=== PATIENT | female | born 1990 | race Caucasian/White ===

== ENCOUNTER 2016-07-01 17:02 | Emergency (ER) | payer OTHER, MEDICAID ==
[2016-07-01] MEDS ORDERED: HYDROcod/ACET 5/325 Prepack 6 PO STA (17:33)
[2016-07-01] MEDS ORDERED: ONDANSETRON ODT 4 MG TABLET TL STA (17:33)
[2016-07-01] MEDS ORDERED: ONDANSETRON ODT 4 MG TABLET ONE (17:43)
[2016-07-01] MEDS ORDERED: oxyCODONE/ACET 5/325 Prepack 4 PO ONE (17:43)
[2016-07-01] MEDS ORDERED: HYDROcod/ACETAM 5/325 MG TABLET PO STA (17:46)
[2016-07-01] MEDS ORDERED: HYDROcod/ACETAM 5/325 MG TABLET ONE (17:47)
[2016-07-01] MEDS ORDERED: metroNIDAZOLE 250 MG TABLET PO STA (19:45)
[2016-07-01] MEDS ORDERED: CIPROFLOXACIN 250 MG TABLET PO STA (19:45)
[2016-07-01] MEDS ORDERED: CIPROFLOXACIN 250 MG TABLET PO ONE (19:48)
[2016-07-01] MEDS ORDERED: metroNIDAZOLE 250 MG TABLET PO ONE (19:48)
== END 2016-07-01 20:02 | disposition home or self-care (01) ==
DX: N12 Tubulo-interstitial nephritis, not specified as acute or chronic (principal); N76.0 Acute vaginitis; B96.89 Other specified bacterial agents as the cause of diseases classified elsewhere
CPT/HCPCS: 36415; 80053; 81001; 81025; 83690; 85025; 87077; 87086; 87181; 87210; 87220; 87491; 87591; 99283; A9270; Q0162

== ENCOUNTER 2016-08-06 11:15 | Outpatient (CLI) | payer OTHER, MEDICAID | END 2016-08-06 11:16 | disposition home or self-care (01) | DX: E28.2 Polycystic ovarian syndrome (principal) ==

== ENCOUNTER 2016-09-09 13:44 | Emergency (ER) | payer OTHER, MEDICAID ==
[2016-09-09] MEDS ORDERED: LIDOCAINE 1% 2 ML VIAL ONE (14:07)
[2016-09-09] MEDS ORDERED: TETANUS/DIPHTHERIA/PERTUSSIS 0.5 ML SYRINGE IM ONE ×2 (14:11→14:16)
== END 2016-09-09 14:50 | disposition home or self-care (01) ==
DX: S61.212A Laceration without foreign body of right middle finger without damage to nail, initial encounter (principal); W45.8XXA Other foreign body or object entering through skin, initial encounter; Y92.019 Unspecified place in single-family (private) house as the place of occurrence of the external cause; Z23 Encounter for immunization

== ENCOUNTER 2017-02-01 17:57 | Emergency (ER) | payer MEDICAID, OTHER ==
[2017-02-01 18:10] VITALS: BP 126/92
--- NOTE | 2017-02-01 18:46 | ED Physician Documentation ---
PD HPI LOWER EXT INJURY - Stated complaint Stated Complaint: R FOOT PX - Chief complaint Chief Complaint: Ext Problem - History obtained from History obtained from: Patient - History of Present Illness PD HPI LOW EXT INJURY LOCATION: Right, Foot Type of injury: Other (accidentally kicked a grill last night, increased bruising and swelling today.) Timing - onset: Last night Timing - duration: Days (1) Timing - details: Abrupt onset Pain level max: 8 Pain level now: 5 Improved by: Rest, Ice, Immobilization Worsened by: Moving, Palpating Associated symptoms: Swelling. 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 Psych: Depression - Past Surgical History Past Surgical History: No - Present Medications Home Medications: Ambulatory Orders Medication Instructions Recorded Confirmed Escitalopram [Lexapro] 20 mg PO DAILY 05/27/15 02/01/17 Ibuprofen [Motrin] 800 mg PO Q8H PRN #30 tablet 02/01/17 - Allergies Allergies/Adverse Reactions: Allergies Allergy/AdvReac Type Severity Reaction Status Date / Time No Known Drug Allergies Allergy Verified 02/01/17 18:18 - Social History Does the pt smoke?: No Smoking Status: Never smoker Does the pt drink ETOH?: Yes Does the pt have substance abuse?: No - Immunizations Immunizations are current?: Yes Immunizations: TDAP >10years/unknown - POLST Patient has POLST: No PD ED PE NORMAL - Vitals Vital signs reviewed: Yes - General General: 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, No acute distress - Derm Derm: Warm and dry - Extremities Extremities: Other (R foot - swelling, ecchymosis and tenderness over the prox phalanx of the great toe. o/w normal exam. NVI) - Neuro Neuro: 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 Results - Vitals Vitals: Vital Signs - 24 hr 02/01/17 18:08 Temperature 36.3 C L Heart Rate 51 L Respiratory 16 Rate Blood Pressure 126/92 H O2 Saturation 100 Oxygen O2 Source Room air - Rads (name of study) R foot xray Radiology: Prelim report reviewed, EMP read contemporaneously, See rad report ( Minimally displaced oblique fracture proximal phalanx great toe. ) PD MEDICAL DECISION MAKING - ED course Complexity details: reviewed results, re-evaluated patient, considered differential, d/w patient ED course: Patient is a 26-year-old female who presents to the emergency department with a minimally displaced oblique fracture of the proximal phalanx of the great toe on the right foot. Placed in a postoperative shoe. Neurovascularly intact. She is well-appearing, nontoxic. Patient counseled regarding signs and symptoms for which I believe and urgent re-evaluation would be necessary. Patient with good understanding of and agreement to plan and is comfortable going home at this time This document was made in part using voice recognition software. While efforts are made to proofread this document, sound alike and grammatical errors may occur. Departure - Departure Disposition: 01 Home, Self Care Clinical Impression: Toe fracture, right Qualifiers: Encounter type: initial encounter Toe: great toe Fracture type: closed Phalanx : proximal Fracture alignment: nondisplaced Qualified Code(s): S92.414A - Nondisplaced fracture of proximal phalanx of right great toe, initial encounter for closed fracture Condition: Good Instructions: ED Fx Foot Follow-Up: [facility] [Provider Group] - Within 1 week Prescriptions: Ibuprofen [Motrin] 800 mg PO Q8H PRN #30 tablet PRN Reason: PAIN &/OR FEVER Comments: Wear the postoperative shoe until released by your doctor and/or orthopedics. Discharge Date/Time: 02/01/17 19:52
--- NOTE | 2017-02-01 19:32 | XRAY Preliminary Report ---
Exam: XR Foot 3 View RT IMPRESSION: Minimally displaced oblique fracture proximal phalanx great toe. [facility] SITE ID: [id number]
--- NOTE | 2017-02-01 19:35 | XRAY Report ---
EXAM: RIGHT FOOT RADIOGRAPHY EXAM DATE: 02/01/2017 06:57 PM. CLINICAL HISTORY: Right foot pain COMPARISON: None. TECHNIQUE: 3 views. FINDINGS: Bones: There is an oblique fracture of the proximal phalanx great toe with 2 mm dorsal displacement o f the distal fracture fragment. Joints: Normal. No subluxations. Soft Tissues: Minimal soft tissue swelling. IMPRESSION: Minimally displaced oblique fracture proximal phalanx great toe. [facility] Referring Provider Line: [phone] SITE ID: [id number]
== END 2017-02-01 19:52 | disposition home or self-care (01) ==
LOC: ED 17:57
DX: S92.414A Nondisplaced fracture of proximal phalanx of right great toe, initial encounter for closed fracture (principal); W22.09XA Striking against other stationary object, initial encounter
CPT/HCPCS: 99283

== ENCOUNTER 2017-05-23 14:11 | Emergency (ER) | payer MEDICAID ==
[2017-05-23 14:20] VITALS: BP 134/82
--- NOTE | 2017-05-23 15:47 | ED Physician Documentation ---
PD HPI HEADACHE - Stated complaint Stated Complaint: HEADACHE - Chief complaint Chief Complaint: Neuro - History obtained from History obtained from: Patient - History of Present Illness Timing - onset: How many days ago (8) Timing - onset during: Light activity Timing - duration: Days (8) Timing - details: Gradual onset, Still present Worst headache ever?: No: Worst headache ever? (feels similar to prior migraines though not typically of this duration.) Location: Front, Right Quality: Throbbing, Aching Associated symptoms: Nausea, Eye pain. No: Fever, Stiff neck, Weakness, Numbness, Syncope, Vision changes Improved by: Dark room. No: Meds (OTC meds) Worsened by: Light, Noise Contributing factors: No: Possible carbon monoxide, Recent illness, Trauma Similar symptoms before: Diagnosis (migraines with rarely of this duration) Recently seen: Not recently seen Review of Systems Constitutional: denies: Fever, Chills Eyes: reports: Photophobia. denies: Loss of vision, Decreased vision, Discharge , Irritation Ears: denies: Loss of hearing, Ear pain Nose: denies: Rhinorrhea / runny nose, Congestion Throat: denies: Sore throat Respiratory: denies: Cough GI: reports: Nausea, Vomiting (today). 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 Psych: Depression - Past Surgical History Past Surgical History: No - Present Medications Home Medications: Ambulatory Orders Medication Instructions Recorded Confirmed Escitalopram [Lexapro] 20 mg PO DAILY 05/27/15 02/01/17 Ibuprofen [Motrin] 800 mg PO Q8H PRN #30 tablet 02/01/17 Cetirizine [ZyrTEC] 10 mg PO DAILY #15 tablet 05/23/17 Dexamethasone [Decadron] 4 mg PO DAILY #5 tablet 05/23/17 HYDROcod/ACETAM 5/325 [[place] 5/325] 1 tab PO Q6H PRN #15 tablet 05/23/17 - Allergies Allergies/Adverse Reactions: Allergies Allergy/AdvReac Type Severity Reaction Status Date / Time No Known Drug Allergies Allergy Verified 05/23/17 14:20 - Social History Does the pt smoke?: No Smoking Status: Never smoker Does the pt drink ETOH?: Yes ETOH Use: Wine, Beer, Liquor Does the pt have substance abuse?: No - Immunizations Immunizations are current?: Yes Immunizations: TDAP >10years/unknown - POLST Patient has POLST: No PD ED PE NORMAL - Vitals Vital signs reviewed: Yes - General General: 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, No acute distress, Well developed/nourished - HEENT HEENT: PERRL (light sensitive), EOMI - Neck Neck: Supple, no meningeal sign, No adenopathy - Cardiac Cardiac: RRR, No murmur - Respiratory Respiratory: Clear bilaterally - Abdomen Abdomen: Soft, Non tender - Back Back: No CVA TTP - Derm Derm: Normal color, Warm and dry, No rash - Extremities Extremities: No deformity, No tenderness to palpate - Neuro Neuro: 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, cart pusher 2-12 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 Improved with meds in ED. ), d/w patient Departure - Departure Disposition: 01 Home, Self Care Clinical Impression: Headache Qualifiers: Headache type: unspecified Headache chronicity pattern: acute headache Intractability: intractable Qualified Code(s): R51 - Headache Condition: Stable Record reviewed to determine appropriate education?: Yes Instructions: ED Cephalgia Unspecified, ED Headache Migraine Follow-Up: Kari Conti ARNP [Primary Care Provider] - Prescriptions: Cetirizine [ZyrTEC] 10 mg PO DAILY #15 tablet Dexamethasone [Decadron] 4 mg PO DAILY #5 tablet HYDROcod/ACETAM 5/325 [[place] 5/325] 1 tab PO Q6H PRN #15 tablet PRN Reason: Pain Comments: Decadron daily for several days until headache all gone. Tylenol or Ibuprofen for pains; add hydrocodone as needed. Drink lots of fluids. Can also take daily antihistamine such as cetirizine. Recheck if headache not fully improved over the next few days. Return if worsening or other symptoms with it. Discharge Date/Time: 05/23/17 16:51
[2017-05-23] MEDS ORDERED: CETIRIZINE 10 MG TABLET PO STA (16:29)
[2017-05-23] MEDS ORDERED: DEXAMETHASONE 10 MG/ML VIAL PO STA (16:29)
== END 2017-05-23 16:51 | disposition home or self-care (01) ==
LOC: ED 14:11
DX: R51 Headache (principal)
CPT/HCPCS: 99283; 99284; A9270; 81025

== ENCOUNTER 2017-05-29 14:05 | Emergency (ER) | payer MEDICAID ==
--- NOTE | 2017-05-29 16:30 | ED Physician Documentation ---
PD HPI HEADACHE - Stated complaint Stated Complaint: HEADACHE/BLURRED VISION - Chief complaint Chief Complaint: General - History obtained from History obtained from: Patient - History of Present Illness Timing - onset: How many weeks ago (2-3) Timing - onset during: Rest Timing - duration: Weeks (2-3) Timing - details: Gradual onset, Still present, Constant Worst headache ever?: No: Worst headache ever? Location: Front, Right Quality: Throbbing, Aching Associated symptoms: Nausea, Vision changes (blurring right side. No loss of vision. No diplopia.). No: Fever, Stiff neck, Vomiting Improved by: No: Rest, Dark room, Meds Worsened by: No: Light, Noise Contributing factors: No: Hypertension, Recent illness, Trauma Similar symptoms before: Diagnosis (similar to migraines in the past, but this is persistent and steady for 2-3 weeks now.) Recently seen: Emergency Dept (seen in ED 5-6 days ago and treated as possible migraine/tension with right occipital nerve injection marcaine, steroids, pains meds. She says it lessened some for 1-2 days but did not go away and is worse again. No new neuro symptoms.) Review of Systems Constitutional: denies: Fever, Chills Eyes: reports: Decreased vision. denies: Loss of vision, Photophobia, Irritation Nose: denies: Rhinorrhea / runny nose, Congestion Throat: denies: Sore throat Respiratory: denies: Cough GI: reports: Nausea. 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 Psych: Depression - Past Surgical History Past Surgical History: No - Present Medications Home Medications: Ambulatory Orders Medication Instructions Recorded Confirmed Escitalopram [Lexapro] 20 mg PO DAILY 05/27/15 05/29/17 Ibuprofen [Motrin] 800 mg PO Q8H PRN #30 tablet 02/01/17 05/29/17 Cetirizine [ZyrTEC] 10 mg PO DAILY #15 tablet 05/23/17 05/29/17 Dexamethasone [Decadron] 4 mg PO DAILY #5 tablet 05/23/17 05/29/17 HYDROcod/ACETAM 5/325 [[place] 5/325] 1 tab PO Q6H PRN #15 tablet 05/23/17 HYDROcod/ACETAM 5/325 [[place] 5/325] 1 tab PO Q6H PRN #20 tablet 05/29/17 - Allergies Allergies/Adverse Reactions: Allergies Allergy/AdvReac Type Severity Reaction Status Date / Time No Known Drug Allergies Allergy Verified 05/29/17 14:17 - Social History Does the pt smoke?: No Smoking Status: Never smoker Does the pt drink ETOH?: Yes Does the pt have substance abuse?: No - Immunizations Immunizations are current?: Yes Immunizations: TDAP >10years/unknown - POLST Patient has POLST: No PD ED PE NORMAL - Vitals Vital signs reviewed: Yes - General General: 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, No acute distress, Well developed/nourished - HEENT HEENT: PERRL, EOMI, Other (fundi appear normal) - Neck Neck: Supple, no meningeal sign, No adenopathy - Cardiac Cardiac: RRR, No murmur - Respiratory Respiratory: Clear bilaterally - Derm Derm: Normal color, Warm and dry, No rash - Neuro Neuro: 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, key 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 operator 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, No motor deficit, No sensory deficit, Normal speech, Other Eye Opening: Spontaneous Motor: Obeys Commands Verbal: Oriented GCS Score: 15 - Psych Psych: Normal mood Results - Vitals Vitals: Vital Signs - 24 hr 05/29/17 05/29/17 14:14 18:54 Temperature 36.1 C L 36.4 C L Heart Rate 89 65 Respiratory 14 18 Rate Blood Pressure 142/92 H 131/89 H O2 Saturation 100 99 Oxygen O2 Source Room air - Labs Labs: Laboratory Tests 05/29/17 15:14 Urine Color YELLOW Urine Clarity HAZY Urine pH 6.0 Ur Specific Matthews <=1.005 Urine Protein NEGATIVE Urine Glucose (UA) NEGATIVE Urine Ketones NEGATIVE Urine Occult Blood SMALL H Urine Nitrite NEGATIVE Urine Bilirubin NEGATIVE Urine Urobilinogen 0.2 (NORMAL) Ur Leukocyte Esterase NEGATIVE Urine RBC 0-5 Urine WBC 0-3 Ur Squamous Epith Cells FEW Squamous Urine Bacteria None Seen Ur Microscopic Review INDICATED Urine Culture Comments NOT INDICATED Urine HCG, Qual NEGATIVE - Rads (name of study) brain MRI Radiology: Prelim report reviewed (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 No bleeding. No other findings. ) PD MEDICAL DECISION MAKING - ED course Complexity details: reviewed results (Suprasellar cyst 1 cm with impingement on chiasm to the right, which could account for right blurred vision and headache ( acting migraine equivalent). ), considered differential (given persistence of headache and some blurred vision, despite sounding migrainous but is persistent and not improved with steroids/occipital nerve injection and pain meds, so discussed with pateint and will obtain imaging to look for structural rather than functional causes. ), d/w patient, d/w instructional consultant (Dr. Barney, Neurosurgery at [facility] - says her findings could account for symptoms and might be triggering migraine too. Suggests Tylenol for pain. Steroids would not be helpful. [facility] office will call her Thursday to set appt for next week. ) Departure - Departure Disposition: Home, Self Care Clinical Impression: Right-sided headache, Suprasellar cyst Condition: Stable Record reviewed to determine appropriate education?: Yes Instructions: ED Cephalgia Unspecified Follow-Up: GLENDA BARNEY MD [Physician No Access] - Prescriptions: HYDROcod/ACETAM 5/325 [[place] 5/325] 1 tab PO Q6H PRN #20 tablet PRN Reason: Pain Comments: I talked with neurosurgery at [facility] and they want to see you next week in follow-up regarding potential treatment options for this. The neurosurgeon does think this can be given you the blurred vision and headache or likely triggering a migraine to some degree. Dr. Barney's office will give you a call on Thursday to set up an appointment. If you have not heard from them by Thursday then you can call their office to follow-up in the number is [phone]. He suggests that steroids or anti-inflammatories will really impacted since its structural and not inflammatory. Continue Tylenol or hydrocodone if needed for pain. Bring the disc of the MRI with you on your follow-up appointment. Discharge Date/Time: 05/29/17 19:39
--- NOTE | 2017-05-29 17:55 | MRI Report ---
EXAM: MRI BRAIN WITHOUT CONTRAST EXAM DATE: 05/29/2017 05:40 PM. CLINICAL HISTORY: 26-year-old with two-week history of right-sided headache and right blurred vision COMPARISON: None. TECHNIQUE: Multiplanar, multisequence T1-weighted and fluid-sensitive MR sequences of the brain were performed. Sequences optimized for routine evaluation. Other: None. IV Contrast: None. FINDINGS: Brain Volume: Normal for age. Parenchyma/Dura: No acute parenchymal hemorrhage, mass, or midline shift. No white matter lesions esdras ntified. No areas restricted diffusion seen to suggest acute infarct. No areas of old hemorrhagic blo od products seen. Ventricles/Cisterns: No hydrocephalus. No abnormal extra-axial fluid collection or hemorrhage. Orbits: Symmetric and unremarkable. Sella Turcica: There is a T1/T2 hyperintense mass lesion seen within the sella with suprasellar exten eron measuring 10 x 10 x 10 mm (CC by TR by AP). There appears to be mass effect on the prechiasmatic optic nerves, greater on the right. Inferior to the lesion there appears to be normal pituitary tiss ues. The pituitary infundibulum is not definitively seen. The cavernous sinuses appear normal. Cavern ous ICA flow voids appear normal. IAC: Symmetric and unremarkable. Vasculature: Normal signal flow void is seen in the major arterial structures at the skull base. Sinuses: Small bilateral maxillary mucosal retention cysts versus polyps. Mastoid air cells and middl e ear cavities are clear. Bones: No focal pathologic appearing marrow signal changes. Other: None. IMPRESSION: 1. There is a T1/T2 hyperintense mass lesion seen within the sella with suprasellar extension measuri ng 10 x 10 x 10 mm (CC by TR by AP). There appears to be mass effect on the prechiasmatic optic nerve s, greater on the right. 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 The possibility of a cystic pituitary adenoma is less likely but not entirely excluded . Consider dedicated pituitary imaging for further evaluation. 2. No acute infarct, intracranial hemorrhage, additional mass, hydrocephalus, or midline shift. [facility] Referring Provider Line: [phone] SITE ID: [id number]
[2017-05-29 18:54] VITALS: BP 131/89
[2017-05-29 19:48] LABS: BILIRUBIN,URINE NEGATIVE (NEGATIVE); GLUCOSE, URINE (UA) NEGATIVE (NEGATIVE); KETONES,URINE (UA) NEGATIVE (NEGATIVE); LEUKOCYTE ESTERASE, URINE NEGATIVE (NEGATIVE); NITRITE,URINE NEGATIVE (NEGATIVE); OCCULT BLOOD,URINE SMALL (NEGATIVE); PROTEIN,URINE NEGATIVE (NEGATIVE); UROBILINOGEN,URINE 0.2 (NORMAL) E.U./dL (NORMAL)
[2017-05-29 20:02] LABS: CLARITY,URINE HAZY (CLEAR); HCG UR QUAL NEGATIVE
[2017-05-29 20:14] LABS: BACTERIA,URINE None Seen /HPF (None Seen); RBC,URINE 0-5 /HPF (0-5); SQUAMOUS EPITHELIAL CELL,UR FEW Squamous (<= Few)
== END 2017-05-29 19:39 | disposition home or self-care (01) ==
LOC: ED 14:05
DX: R51 Headache (principal); G93.0 Cerebral cysts
CPT/HCPCS: 70551; 81001; 81003; 81025; 87086; 99283; 99284

== ENCOUNTER 2017-06-04 10:41 | Outpatient (CLI) | payer MEDICAID ==
[2017-06-04 11:35] LABS: CALCIUM 9.2 mg/dL (8.5-10.3); CREATININE 0.9 mg/dL (0.4-1.0)
[2017-06-04 12:18] LABS: THYROID STIMULATING HORMONE 0.9 uIU/mL (0.34-5.60)
[2017-06-04 12:23] LABS: FREE T4 (FREE THYROXINE) 0.89 ng/dL (0.58-1.64)
[2017-06-04 12:24] LABS: PROLACTIN 12.06 ng/mL
[2017-06-04 12:46] LABS: FOLLICLE STIMULATING HORMONE 8.43 mIU/mL
[2017-06-04 12:47] LABS: LUTEINIZING HORMONE 9.16 mIU/mL
== END 2017-06-04 10:42 | disposition home or self-care (01) ==
LOC: LAB 10:41
PROVIDERS: ATTEND Neurological Surgery
DX: D49.7 Neoplasm of unspecified behavior of endocrine glands and other parts of nervous system (principal)
CPT/HCPCS: 36415; 80048; 81599; 83001; 83002; 84146; 84439; 84443

== ENCOUNTER 2017-07-28 14:39 | Outpatient (CLI) | payer MEDICAID ==
[2017-07-28 15:08] LABS: BASOPHILS % (AUTO) 0.5 %; EOSINOPHILS % (AUTO) 0.8 %; HGB - HEMOGLOBIN 12.9 g/dL (12.0-16.0); LYMPHOCYTES # (AUTO) 2.1 10^3/uL (1.5-3.5); LYMPHOCYTES % (AUTO) 39.7 %; MEAN CORPUSCULAR HEMOGLOBIN 29.3 pg (27.0-31.0); MEAN CORPUSCULAR HGB CONC 33.2 g/dL (32.0-36.0); MEAN CORPUSCULAR VOLUME 88.2 fL (81.0-99.0); MEAN PLATELET VOLUME 8.1 fL (7.9-10.8); MONOCYTES # (AUTO) 0.4 10^3/uL (0.0-1.0); MONOCYTES % (AUTO) 6.7 %; NEUTROPHILS # (AUTO) 2.8 10^3/uL (1.5-6.6); NEUTROPHILS % (AUTO) 52.3 %; PLT - PLATELET COUNT 269 10^3/uL (130-450); RED BLOOD COUNT 4.41 10^6/uL (4.20-5.40); RED CELL DISTRIBUTION WIDTH 13.4 % (12.0-15.0); WHITE BLOOD COUNT 5.3 x10^3/uL (4.8-10.8)
[2017-07-28 15:19] LABS: CREATININE 0.9 mg/dL (0.4-1.0)
[2017-07-28 15:31] LABS: INR 1.1 (0.8-1.2); PT - PROTHROMBIN TIME 12.2 secs (9.9-12.6)
[2017-07-28 15:47] LABS: GLUCOSE, URINE (UA) NEGATIVE (NEGATIVE); KETONES,URINE (UA) 15 mg/dL (NEGATIVE); LEUKOCYTE ESTERASE, URINE NEGATIVE (NEGATIVE); NITRITE,URINE NEGATIVE (NEGATIVE); OCCULT BLOOD,URINE MODERATE (NEGATIVE); PH,URINE 6.5 PH (5.0-7.5); PROTEIN,URINE NEGATIVE (NEGATIVE); UROBILINOGEN,URINE 0.2 (NORMAL) E.U./dL (NORMAL)
[2017-07-28 15:50] LABS: BILIRUBIN,URINE NEGATIVE (NEGATIVE); CLARITY,URINE CLEAR (CLEAR); ICTOTEST,URINE NEGATIVE
[2017-07-28 16:21] LABS: RBC,URINE 0-5 /HPF (0-5)
[2017-07-28 16:22] LABS: BACTERIA,URINE Few /HPF (None Seen); MUCUS,URINE Marked Strands; SQUAMOUS EPITHELIAL CELL,UR MOD Squamous (<= Few)
== END 2017-07-28 14:40 | disposition home or self-care (01) ==
LOC: LAB 14:39
PROVIDERS: ATTEND Neurological Surgery
DX: E23.6 Other disorders of pituitary gland (principal)
CPT/HCPCS: 36415; 80048; 81001; 81003; 85025; 85610; 87086

== ENCOUNTER 2017-08-03 12:32 | Outpatient (CLI) | payer MEDICAID ==
[2017-08-03 13:29] LABS: CALCIUM 8.7 mg/dL (8.5-10.3); CREATININE 0.7 mg/dL (0.4-1.0)
== END 2017-08-03 12:33 | disposition home or self-care (01) ==
LOC: LAB 12:32
PROVIDERS: ATTEND Neurological Surgery
DX: E23.6 Other disorders of pituitary gland (principal)
CPT/HCPCS: 36415; 80048

== ENCOUNTER 2017-08-10 12:43 | Outpatient (CLI) | payer MEDICAID ==
[2017-08-10 13:18] LABS: CREATININE 0.7 mg/dL (0.4-1.0)
== END 2017-08-10 12:44 | disposition home or self-care (01) ==
LOC: LAB 12:43
PROVIDERS: ATTEND Neurological Surgery
DX: E23.6 Other disorders of pituitary gland (principal)
CPT/HCPCS: 36415; 80048

== ENCOUNTER 2017-08-27 10:36 | Outpatient (CLI) | payer MEDICAID ==
[2017-08-27 11:14] LABS: BUN - BLOOD UREA NITROGEN 11 mg/dL (6-20); CARBON DIOXIDE - CO2 25 mmol/L (21-32); CHLORIDE 104 mmol/L (101-111); CREATININE 0.7 mg/dL (0.4-1.0); GFR - MDRD 102 (>89); GLUCOSE 98 mg/dL (70-100); SODIUM 136 mmol/L (135-145)
[2017-08-27 11:17] LABS: CRP - C-REACTIVE PROTEIN < 1.0 mg/dL (0-1.0)
[2017-08-27 12:37] LABS: RHEUMATOID FACTOR NEGATIVE (Negative)
== END 2017-08-27 10:37 | disposition home or self-care (01) ==
LOC: LAB 10:36
PROVIDERS: ATTEND Nurse Practitioner Family
DX: D49.7 Neoplasm of unspecified behavior of endocrine glands and other parts of nervous system (principal); R53.81 Other malaise
CPT/HCPCS: 36415; 80048; 85651; 86038; 86140; 86200; 86430

== ENCOUNTER 2017-10-21 12:44 | Outpatient (CLI) | payer MEDICAID ==
[~2017-10-21 12:44] MED LIST: GADOBUTROL 7.5 MMOL/7.5 ML SYRINGE ONE
[2017-10-21] MEDS ORDERED: GADOBUTROL 7.5 MMOL/7.5 ML SYRINGE IVP ONE (13:36)
--- NOTE | 2017-10-21 15:38 | MRI Report ---
EXAM: MRI BRAIN AND PITUITARY WITHOUT AND WITH CONTRAST EXAM DATE: 10/21/2017 01:51 PM. 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 Evaluate for i nterval change. COMPARISON: MR brain 05/29/2017. TECHNIQUE: Multiplanar, multisequence T1-weighted and fluid-sensitive MR sequences of the brain and p ituitary were performed. Sequences optimized for routine evaluation. Other: None. IV Contrast: 7.5ML GADAVIST. FINDINGS: Brain Volume: Normal for age. Parenchyma: No acute hemorrhage, mass, or infarct. No white matter lesions identified. No abnormal en hancement. Ventricles/Cisterns: No hydrocephalus. No abnormal extra-axial fluid collection or hemorrhage. Cister ns are patent. No abnormal postcontrast enhancement. Orbits: Symmetric and unremarkable. Sella Turcica: Again demonstrated is an intrinsically T1 hyperintense lesion seen along the superior aspect of the pituitary measuring 4 x 4 by 4 mm it is decreased in size since 05/29/2017 at which wing e it measured 9 x 8 x 8 mm (cc by TRV by AP). On dynamic and postcontrast sequences there is question able area of hypoenhancement within the left aspect of the pituitary seen measuring 3 x 3 x 2 mm (cc by TRV by AP; series 1101, image 28). The normal pituitary T1 bright spot appears that an ectopic loc ation along the posterior right aspect of the sella. Infundibulum appears slightly deviated to the ri ght. No suprasellar mass or mass effect on the overlying optic structures. Cavernous sinuses appear n ormal. Cavernous ICA flow voids appear maintained. IAC: Symmetric and unremarkable. Vasculature: Normal signal flow void is seen in the major arterial structures at the skull base. The dural sinuses are patent and enhance normally. Sinuses: No acute sinus disease. Bones: No focal pathologic appearing marrow signal changes. Other: None. IMPRESSION: 1. There continues to be a intrinsically T1 hyperintense lesion seen along the superior aspect of the pituitary is decreased in size since 05/29/2017 currently measuring 4 x 4 by 4 mm, previously measur ing 9 x 8 x 8 mm (cc by TRV AP). Findings suspicious for potential proteinaceous Rathke's cleft cyst or pituitary cyst. Focus of hemorrhage cannot be excluded. 2. On dynamic and postcontrast sequences there is questionable area of hypoenhancement within the lef t aspect of the pituitary seen measuring 3 x 3 x 2 mm (cc by TRV by AP). 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 Correlation with laboratory values is suggested. 3. No acute infarct, intracranial hemorrhage, additional mass, hydrocephalus, midline shift, or addit ional areas of abnormal postcontrast enhancement. [facility] Referring Provider Line: [phone] SITE ID: [id number]
== END 2017-10-21 12:45 | disposition home or self-care (01) ==
LOC: DI 12:44
PROVIDERS: ATTEND Neurological Surgery
DX: E23.6 Other disorders of pituitary gland (principal)
CPT/HCPCS: 70553; A9585

== ENCOUNTER 2017-12-29 10:33 | Emergency (ER) | payer MEDICAID ==
[2017-12-29 11:11] VITALS: BP 130/90
--- NOTE | 2017-12-29 12:49 | XRAY Report ---
Procedure Date: 12/29/2017 Accession Number: [id number] / [id number] Procedure: XR - Wrist 2 View LT CPT Code: FULL RESULT: EXAM: LEFT WRIST RADIOGRAPHY EXAM DATE: 12/29/2017 12:38 PM. CLINICAL HISTORY: Pain. Twisting injury. Left wrist pain. COMPARISON: None. TECHNIQUE: 2 views. FINDINGS: Bones: Normal. No fractures or bone lesions. Joints: Normal. No subluxations. Soft Tissues: Normal. No soft tissue swelling. IMPRESSION: Normal 2 view left wrist radiography. [facility]
--- NOTE | 2017-12-29 12:56 | ED Physician Documentation ---
PD HPI UPPER EXT INJURY - Stated complaint Stated Complaint: LT WRIST INJ - Chief complaint Chief Complaint: Ext Problem - History obtained from History obtained from: Patient - History of Present Illness Location: Left, Wrist Timing - details: Gradual onset, Intermittant Pain level max: 6 Pain level now: 5 Improved by: Rest Worsened by: Moving, Palpating - Additonal information Additional information: Patient is a 27-year-old female who presents to the emergency department with left wrist pain. She states this started after skipping gelato at work. States it is worse with movement and better with rest. Has carpal tunnel in the right wrist so has been using her left wrist. She is right-handed. 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 Psych: Depression - Past Surgical History Past Surgical History: No - Present Medications Home Medications: Ambulatory Orders Medication Instructions Recorded Confirmed Escitalopram [Lexapro] 20 mg PO DAILY 05/27/15 05/29/17 Ibuprofen [Motrin] 800 mg PO Q8H PRN #30 tablet 02/01/17 05/29/17 Cetirizine [ZyrTEC] 10 mg PO DAILY #15 tablet 05/23/17 05/29/17 Dexamethasone [Decadron] 4 mg PO DAILY #5 tablet 05/23/17 05/29/17 HYDROcod/ACETAM 5/325 [Lannon 5/325] 1 tab PO Q6H PRN #15 tablet 05/23/17 HYDROcod/ACETAM 5/325 [Lannon 5/325] 1 tab PO Q6H PRN #20 tablet 05/29/17 Meloxicam [Mobic] 15 mg PO DAILY PRN #20 tablet 12/29/17 - Allergies Allergies/Adverse Reactions: Allergies Allergy/AdvReac Type Severity Reaction Status Date / Time No Known Drug Allergies Allergy Verified 12/29/17 11:10 - Social History Does the pt smoke?: No Smoking Status: Never smoker Does the pt drink ETOH?: Yes ETOH Use: Other Does the pt have substance abuse?: No Substance Use and Type: Marijuana - Immunizations Immunizations are current?: Yes Immunizations: TDAP >10years/unknown - POLST Patient has POLST: No PD ED PE NORMAL - Vitals Vital signs reviewed: Yes - General General: 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, No acute distress - HEENT HEENT: Moist mucous membranes - Derm Derm: Warm and dry - Extremities Extremities: Other (L wrist - no bony tenderness with palpation. NVI. pain with ROM. ) - Neuro Neuro: 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 - Psych Psych: Normal mood, Normal affect Results - Vitals Vitals: Vital Signs - 24 hr 12/29/17 11:08 Temperature 36.5 C Heart Rate 82 Respiratory 16 Rate Blood Pressure 130/90 H O2 Saturation 100 Oxygen O2 Source Room air - Rads (name of study) L wrist xray Radiology: Prelim report reviewed, EMP read contemporaneously, See rad report ( no acute abnormality.) PD MEDICAL DECISION MAKING - ED course Complexity details: considered differential, d/w patient ED course: Patient is a 27-year-old female with what appears to be a left wrist strain versus sprain. Likely overuse injury. Placed in a velcro splint for comfort. Will have her follow-up with her doctor for further evaluation and care. Neurovascularly intact. No bony tenderness. Patient counseled regarding signs and symptoms for which I believe and urgent re-evaluation would be necessary. Patient with good understanding of and agreement to plan and is comfortable going home at this time This document was made in part using voice recognition software. While efforts are made to proofread this document, sound alike and grammatical errors may occur. - Sepsis Event Vital Signs: Vital Signs - 24 hr 12/29/17 11:08 Temperature 36.5 C Heart Rate 82 Respiratory 16 Rate Blood Pressure 130/90 H O2 Saturation 100 Oxygen O2 Source Room air Departure - Departure Disposition: 01 Home, Self Care Clinical Impression: Strain of wrist, left Qualifiers: Encounter type: initial encounter Qualified Code(s): S66.912A - Strain of unspecified muscle, fascia and tendon at wrist and hand level, left hand, initial encounter Condition: Good Instructions: ED Sprain Wrist Follow-Up: Kari Conti ARNP [Primary Care Provider] - Within 1 week Prescriptions: Meloxicam [Mobic] 15 mg PO DAILY PRN #20 tablet PRN Reason: pain Comments: Return if you worsen. Use the mobic as prescribed and use the splint to help your discomfort. Forms: Activity restrictions Discharge Date/Time: 12/29/17 13:14
== END 2017-12-29 13:14 | disposition home or self-care (01) ==
LOC: ED 10:33
DX: S66.912A Strain of unspecified muscle, fascia and tendon at wrist and hand level, left hand, initial encounter (principal); X50.3XXA Overexertion from repetitive movements, initial encounter
CPT/HCPCS: 99283

== ENCOUNTER 2018-01-27 10:54 | Emergency (ER) | payer MEDICAID ==
[2018-01-27] MEDS ORDERED: cephALEXin 250 MG CAPSULE PO STA (12:35)
[2018-01-27] MEDS ORDERED: CETIRIZINE 10 MG TABLET PO STA (12:35)
[2018-01-27] MEDS ORDERED: DEXAMETHASONE 10 MG/ML VIAL PO STA (12:35)
--- NOTE | 2018-01-27 12:36 | ED Physician Documentation ---
PD HPI HEENT - Stated complaint Stated Complaint: HEAD PX/SORE THROAT/VISION CHANGES - Chief complaint Chief Complaint: General - History obtained from History obtained from: Patient - History of Present Illness Timing - onset: How many weeks ago (1-2) Timing - duration: Weeks (1-2) Timing - details: Gradual onset, Still present Location: Sinuses (feeling of frontal sinus pressure and right maxillary. Had had cyst drained in Jul via transsphenoidal approach and was doing okay. Has had some nasal drainage and pressure recently. Has had sore throat in mornings the past week or so. Intermittent blurred vision the past week or so.) Worsens: Position Associated symptoms: Congestion, Headache (frontal pressure). No: Fever, Swollen nodes, Facial swelling, Cough Recently seen: Not recently seen (appt with PCP upcoming.) Review of Systems Constitutional: denies: Fever, Chills Eyes: reports: Decreased vision (intermittently). 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 ) - Present Medications Home Medications: Ambulatory Orders Medication Instructions Recorded Confirmed Escitalopram [Lexapro] 20 mg PO DAILY 05/27/15 05/29/17 Ibuprofen [Motrin] 800 mg PO Q8H PRN #30 tablet 02/01/17 05/29/17 Cetirizine [ZyrTEC] 10 mg PO DAILY #15 tablet 05/23/17 05/29/17 Cephalexin [Keflex] 500 mg PO QID #21 capsule 01/27/18 Cetirizine [ZyrTEC] 10 mg PO DAILY #20 tablet 01/27/18 Dexamethasone [Decadron] 4 mg PO DAILY #7 tablet 01/27/18 Nortriptyline HCl 25 mg pe 01/27/18 Tramadol HCl 50 mg PO Q6H PRN #20 tablet 01/27/18 - Allergies Allergies/Adverse Reactions: Allergies Allergy/AdvReac Type Severity Reaction Status Date / Time No Known Drug Allergies Allergy Verified 01/27/18 11:02 - Social History Does the pt smoke?: No Smoking Status: Never smoker Does the pt drink ETOH?: Yes Does the pt have substance abuse?: No - Immunizations Immunizations are current?: Yes Immunizations: TDAP >10years/unknown - POLST Patient has POLST: No PD ED PE NORMAL - Vitals Vital signs reviewed: Yes - General General: 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, No acute distress, Well developed/nourished - HEENT HEENT: PERRL, EOMI, Moist mucous membranes, Pharynx benign, Other (sinus tender to percussion frontal) - Neck Neck: Supple, no meningeal sign, No adenopathy - Derm Derm: Normal color, Warm and dry - Neuro Neuro: 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, 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 Had been bigger, but I am not sure if this would be residual post procedure or recurrent. A repeat MRI would be good to see if re-expanding, but would not think it emergent per se. ), considered differential (sounds largely like sinus inflammation/infection. Some symptoms could be recurring cyst at pituitary with pressure (like the vision blurry at times). Would not see reason for emergent MRI, so defer to PCP/Neurosurgeon to get repeat one outpt. ), d/w patient - Sepsis Event Vital Signs: Vital Signs - 24 hr 01/27/18 01/27/18 11:00 12:49 Temperature 36.4 C L 36.4 C L Heart Rate 97 80 Respiratory 20 16 Rate Blood Pressure 141/98 H 130/91 H O2 Saturation 100 96 Oxygen O2 Source Room air Departure - Departure Disposition: 01 Home, Self Care Clinical Impression: Frontal headache Sinusitis, acute Qualifiers: Sinusitis location: frontal Recurrence: non-recurrent Qualified Code(s): J01.10 - Acute frontal sinusitis, unspecified Condition: Stable Record reviewed to determine appropriate education?: Yes Instructions: ED Sinusitis Abx Tx Follow-Up: Kari Conti ARNP [Primary Care Provider] - Prescriptions: Cephalexin [Keflex] 500 mg PO QID #21 capsule Cetirizine [ZyrTEC] 10 mg PO DAILY #20 tablet Dexamethasone [Decadron] 4 mg PO DAILY #7 tablet Tramadol HCl 50 mg PO Q6H PRN #20 tablet PRN Reason: Pain Comments: A good component of your symptoms sound like sinus infection or inflammation. We will treated with cetirizine antihistamine and Decadron steroid as directed. Cephalexin antibiotic for possible infection. Add Tylenol or tramadol if needed for pains. Still continue with your primary care and neurosurgeon regarding repeat MRI to assess for follow-up on your pituitary cyst surgery. Return if worsening symptoms. Discharge Date/Time: 01/27/18 12:50
[2018-01-27] MEDS ORDERED: CHERRY SYRUP 10 ML UDC PO ONE (12:39)
[2018-01-27 12:50] VITALS: BP 130/91
== END 2018-01-27 12:50 | disposition home or self-care (01) ==
LOC: ED 10:54
DX: R51 Headache (principal); J01.10 Acute frontal sinusitis, unspecified
CPT/HCPCS: 99283; A9270; 87430

== ENCOUNTER 2018-02-19 09:45 | Outpatient (CLI) | payer MEDICAID ==
[2018-02-19] MEDS ORDERED: GADOBUTROL 7.5 MMOL/7.5 ML VIAL ONE (10:16)
[2018-02-19] MEDS ORDERED: GADOBUTROL 7.5 MMOL/7.5 ML VIAL IVP ONE (10:52)
--- NOTE | 2018-02-19 19:01 | MRI Report ---
Reason: OTHER DISORDERS OF PITUITARY GLAND Procedure Date: 02/19/2018 Accession Number: [id number] / [id number] Procedure: MRI - Brain W/WO CPT Code: FULL RESULT: EXAM: MRI BRAIN WITHOUT AND WITH CONTRAST EXAM DATE: 02/19/2018 11:08 AM. CLINICAL HISTORY: 27-year-old woman with disorder of the pituitary gland. COMPARISON: BRAIN W/WO 10/21/2017 1:00 PM. TECHNIQUE: Multiplanar, multisequence T1-weighted and fluid-sensitive MR sequences of the brain were performed. Sequences optimized for pituitary evaluation. Other: None. IV Contrast: 7.5 cc Gadavist. FINDINGS: Parenchyma: No evidence of acute infarct on diffusion weighted sequence. Parenchyma demonstrates normal signal intensity on T1- and T2-weighted sequences. No evidence of prior hemorrhage on susceptibility weighted sequence. No abnormal enhancement. Pituitary: T1 hyperintense cystic lesion is present along with a dorsal aspect of the pituitary measuring approximately 6 mm craniocaudal and 6 mm AP, previously 5 x 5 mm on the 10/21/2017 exam. This lesion projects into the suprasellar cistern, but is widely from the optic chiasm. Otherwise, the pituitary is symmetric and normal in size, measuring approximately 8 mm craniocaudal with the stalk insertion, unchanged. Enhancement is homogeneous on dynamic sequence. Adjacent cavernous sinuses are symmetric and normal in appearance. Ventricles and Extra-axial Spaces: Ventricles are symmetric and normal in size for age. Extra-axial spaces are unremarkable. No abnormal enhancement. Orbits: Unremarkable. Sinuses: Paranasal sinuses and mastoid air cells are clear. Major Vascular Flow Voids: Intact. Dural Venous Sinuses and Major Central Veins: Patent on post-contrast images. IMPRESSION: 1. T1 hyperintense cystic lesion along the dorsal aspect of the pituitary is stable or minimally increased in size compared to the 10/21/2017 exam. 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 RADIA
== END 2018-02-19 09:46 | disposition home or self-care (01) ==
LOC: DI 09:45
PROVIDERS: ATTEND Neurological Surgery
DX: E23.6 Other disorders of pituitary gland (principal)
CPT/HCPCS: 70553; A9585

== ENCOUNTER 2018-06-19 16:36 | Emergency (ER) | payer MEDICAID ==
[2018-06-19 16:40] VITALS: BP 122/69
--- NOTE | 2018-06-19 16:59 | ED Physician Documentation ---
PD HPI UPPER EXT INJURY - Stated complaint Stated Complaint: FINGER LAC - Chief complaint Chief Complaint: Laceration - History obtained from History obtained from: Patient - History of Present Illness Location: Left, Finger (thumb) Type of injury: Laceration (She cuts the palmar base of the left thumb with a knife while cutting a bagel at work today. She states it was open pretty well and bleeding initially. She bandaged it tightly. She came here for evaluation. 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 - Past Surgical History Past Surgical History: No Neuro: Other - Present Medications Home Medications: Ambulatory Orders Medication Instructions Recorded Confirmed Escitalopram [Lexapro] 20 mg PO DAILY 05/27/15 05/29/17 Ibuprofen [Motrin] 800 mg PO Q8H PRN #30 tablet 02/01/17 05/29/17 Cetirizine [ZyrTEC] 10 mg PO DAILY #15 tablet 05/23/17 05/29/17 Cephalexin [Keflex] 500 mg PO QID #21 capsule 01/27/18 Cetirizine [ZyrTEC] 10 mg PO DAILY #20 tablet 01/27/18 Dexamethasone [Decadron] 4 mg PO DAILY #7 tablet 01/27/18 Nortriptyline HCl 25 mg pe 01/27/18 Tramadol HCl 50 mg PO Q6H PRN #20 tablet 01/27/18 - Allergies Allergies/Adverse Reactions: Allergies Allergy/AdvReac Type Severity Reaction Status Date / Time No Known Drug Allergies Allergy Verified 06/19/18 16:40 - Social History Does the pt smoke?: No Smoking Status: Never smoker Does the pt drink ETOH?: Yes Does the pt have substance abuse?: No - Immunizations Immunizations are current?: Yes Immunizations: TDAP >10years/unknown - POLST Patient has POLST: No PD ED PE NORMAL - Vitals Vital signs reviewed: Yes - General General: 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, No acute distress, Well developed/nourished - Derm Derm: Normal color, Warm and dry - Extremities Extremities: Other (The left thumb on the palmar proximal phalanx has a 1.5 cm laceration with the edges fairly well closed. There is no active bleeding. There is no obvious foreign body. She has good sensation and flexion of the thumb. Good color and capillary refill.) - Neuro Neuro: 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, No motor deficit, No sensory deficit, Normal speech Results - Vitals Vitals: Vital Signs - 24 hr 06/19/18 16:38 Temperature 36 C L Heart Rate 65 Respiratory 16 Rate Blood Pressure 122/69 O2 Saturation 100 Oxygen O2 Source Room air Procedures - Laceration (location) left thumb Length in cm: 1.5 Wound type: Linear, Into subcut fat, Clean Neurovascular status: Sensory intact, Motor intact Tendon involvement: Tendon intact Wound Preparation: No: FB identified Skin layer closure: Dermabond, Steri strips Other: Patient tolerated well, No complications, Tetanus UTD Complexity: Simple PD MEDICAL DECISION MAKING - ED course Complexity details: considered differential, d/w patient Departure - Departure Disposition: 01 Home, Self Care Clinical Impression: Laceration of left thumb Qualifiers: Encounter type: initial encounter Damage to nail status: without damage Foreign body presence: without foreign body Qualified Code(s): S61.012A - Laceration without foreign body of left thumb without damage to nail, initial encounter Condition: Stable Record reviewed to determine appropriate education?: Yes Instructions: ED Laceration Hand Follow-Up: Kari Conti ARNP [Primary Care Provider] - Comments: Keep the Steri-Strips clean and dry and allow them to fall off on their own in several days. Then you can start routine care of washing with soap and water and applying ointment. Recheck if signs of infection. I think this should heal up okay and you can have lites normal use of your hand while it is healing. Discharge Date/Time: 06/19/18 17:23
== END 2018-06-19 17:23 | disposition home or self-care (01) ==
LOC: ED 16:36
DX: S61.012A Laceration without foreign body of left thumb without damage to nail, initial encounter (principal); W26.0XXA Contact with knife, initial encounter; Y93.G1 Activity, food preparation and clean up; Y99.0 Civilian activity done for income or pay
CPT/HCPCS: 12001; 99282; 99283

== ENCOUNTER 2018-07-29 14:00 | Outpatient (CLI) | payer MEDICAID ==
[2018-07-29 17:37] LABS: HGB - HEMOGLOBIN 12.5 g/dL (12.0-16.0); MEAN CORPUSCULAR HEMOGLOBIN 29.1 pg (27.0-31.0); MEAN CORPUSCULAR HGB CONC 33.1 g/dL (32.0-36.0); MEAN PLATELET VOLUME 9.5 fL (7.9-10.8); RED BLOOD COUNT 4.27 10^6/uL (4.20-5.40); RED CELL DISTRIBUTION WIDTH 13.2 % (12.0-15.0); WHITE BLOOD COUNT 6.9 x10^3/uL (4.8-10.8)
[2018-07-29 18:14] LABS: RHEUMATOID FACTOR NEGATIVE (Negative)
[2018-07-31 12:36] LABS: ANA SCREEN NEGATIVE (NEGATIVE)
== END 2018-07-29 14:01 | disposition home or self-care (01) ==
LOC: LAB.F 14:00
PROVIDERS: ATTEND Nurse Practitioner Family
DX: M25.50 Pain in unspecified joint (principal)
CPT/HCPCS: 36415; 81599; 85025; 85027; 85651; 86038; 86140; 86200; 86430; 86617; 86618

== ENCOUNTER 2018-10-16 08:43 | Outpatient (CLI) | payer MEDICAID ==
[2018-10-16] MEDS ORDERED: GADOBUTROL 7.5 MMOL/7.5 ML VIAL ONE (09:23)
[2018-10-16] MEDS ORDERED: GADOBUTROL 7.5 MMOL/7.5 ML VIAL IVP ONE (10:20)
--- NOTE | 2018-10-16 11:34 | MRI Report ---
Reason: PITUITARY CYST Procedure Date: 10/16/2018 Accession Number: [id number] / [id number] Procedure: MRI - Brain W/WO CPT Code: FULL RESULT: EXAM: MRI BRAIN WITHOUT AND WITH CONTRAST EXAM DATE: 10/16/2018 10:20 AM. CLINICAL HISTORY: Suprasellar cistern cyst follow-up. COMPARISON: BRAIN W/WO 02/19/2018 10:26 AM BRAIN W/WO 10/21/2017 1:00 PM. TECHNIQUE: Multiplanar, multisequence T1-weighted and fluid-sensitive MR sequences of the brain were performed. Sequences optimized for pituitary evaluation. Other: None. IV Contrast: . FINDINGS: Again seen sitting on the top of the pituitary gland is a rounded structure that is circumscribed and strongly T1 hyperintense precontrast. This structure is now larger than on the previous study currently at least 6 mm in diameter and previously at most 5 mm. The adjacent pituitary gland and infundibulum otherwise have a stable appearance. This presumed cyst is now more noticeably T2 hyperintense and slightly eccentric to the left of midline on the coronal T2-weighted images. No impingement of the adjacent optic apparatus in the suprasellar cistern. No other evidence for new or acute intracranial abnormality. No other evidence for mass, hemorrhage or stroke. Stable unremarkable appearance of the brain. IMPRESSION: MRI findings are consistent with cyst along the upper margin of the pituitary gland. There has been a minimal degree of interval enlargement compared to the prior brain MRI scans. RADIA
== END 2018-10-16 08:44 | disposition home or self-care (01) ==
LOC: DI 08:43
PROVIDERS: ATTEND Nurse Practitioner Family
DX: E23.6 Other disorders of pituitary gland (principal)
CPT/HCPCS: 70553; A9585

== ENCOUNTER 2018-11-07 11:22 | Emergency (ER) | payer MEDICAID ==
[2018-11-07 11:39] VITALS: BP 126/82
[2018-11-07 11:47] LABS: BILIRUBIN,URINE NEGATIVE (NEGATIVE); GLUCOSE, URINE (UA) NEGATIVE (NEGATIVE); KETONES,URINE (UA) NEGATIVE (NEGATIVE); LEUKOCYTE ESTERASE, URINE NEGATIVE (NEGATIVE); NITRITE,URINE POSITIVE (NEGATIVE); OCCULT BLOOD,URINE SMALL (NEGATIVE); PH,URINE 6.5 PH (5.0-7.5); PROTEIN,URINE NEGATIVE (NEGATIVE); UROBILINOGEN,URINE 0.2 (NORMAL) E.U./dL (NORMAL)
[2018-11-07 11:48] LABS: CLARITY,URINE CLEAR (CLEAR); HCG UR QUAL NEGATIVE
[2018-11-07 11:55] LABS: BACTERIA,URINE Few /HPF (None Seen); MUCUS,URINE Few Strands; SQUAMOUS EPITHELIAL CELL,UR FEW Squamous (<= Few)
--- NOTE | 2018-11-07 12:36 | ED Physician Documentation ---
PD HPI FEMALE - Stated complaint Stated Complaint: FEMALE - Chief complaint Chief Complaint: General - History obtained from History obtained from: Patient - History of Present Illness Timing - onset: How many days ago (2) Timing - duration: Days (2) Timing - details: Gradual onset, Still present Associated symptoms: Dysuria, Urinary frequency Similar symptoms before: Diagnosis (UTI) Recently seen: Not recently seen - Additional information Additional information: 28-year-old female who has had a prior history of frequent urinary tract infections has developed symptoms again of urinary urgency frequency and dysuria for the past 2 days. This is not cleared up so she is coming to the emergency department for antibiotic therapy. 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 Surgical removal but it has returned. - Past Surgical History Past Surgical History: Yes Neuro: Other - Present Medications Home Medications: Ambulatory Orders Medication Instructions Recorded Confirmed Escitalopram [Lexapro] 20 mg PO DAILY 05/27/15 05/29/17 Ibuprofen [Motrin] 800 mg PO Q8H PRN #30 tablet 02/01/17 05/29/17 Cetirizine [ZyrTEC] 10 mg PO DAILY #15 tablet 05/23/17 05/29/17 Cephalexin [Keflex] 500 mg PO QID #21 capsule 01/27/18 Cetirizine [ZyrTEC] 10 mg PO DAILY #20 tablet 01/27/18 Nortriptyline HCl 25 mg pe 01/27/18 Tramadol HCl 50 mg PO Q6H PRN #20 tablet 01/27/18 dexAMETHasone [Decadron] 4 mg PO DAILY #7 tablet 01/27/18 Sulfamethoxazole/Trimethoprim 1 each PO BID #10 tablet 11/07/18 [Sulfamethoxazole-Tmp Ds Tablet] - Allergies Allergies/Adverse Reactions: Allergies Allergy/AdvReac Type Severity Reaction Status Date / Time No Known Drug Allergies Allergy Verified 11/07/18 11:39 - Social History Does the pt smoke?: No Smoking Status: Never smoker Does the pt drink ETOH?: Yes Does the pt have substance abuse?: No - Immunizations Immunizations are current?: Yes Immunizations: TDAP >10years/unknown - POLST Patient has POLST: No PD ED PE NORMAL - Vitals Vital signs reviewed: Yes (hypertensive mild ) - General General: 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, No acute distress, Well developed/nourished - HEENT HEENT: Atraumatic, PERRL, EOMI - Respiratory Respiratory: No respiratory distress - Back Back: No CVA TTP, No spinal TTP - Derm Derm: Normal color, Warm and dry, No rash - Extremities Extremities: No deformity, No edema - Neuro Neuro: 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, 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, No motor deficit, No sensory deficit, Normal speech Eye Opening: Spontaneous Motor: Obeys Commands Verbal: Oriented GCS Score: 15 - Psych Psych: Normal mood, Normal affect Results - Vitals Vitals: Vital Signs - 24 hr 11/07/18 11:37 Temperature 36.5 C Heart Rate 74 Respiratory 14 Rate Blood Pressure 126/82 H O2 Saturation 99 Oxygen O2 Source Room air - Labs Labs: Laboratory Tests 11/07/18 11:35 Urine Color YELLOW Urine Clarity CLEAR Urine pH 6.5 Ur Specific [place] 1.020 Urine Protein NEGATIVE Urine Glucose (UA) NEGATIVE Urine Ketones NEGATIVE Urine Occult Blood SMALL H Urine Nitrite POSITIVE H Urine Bilirubin NEGATIVE Urine Urobilinogen 0.2 (NORMAL) Ur Leukocyte Esterase NEGATIVE Urine RBC 6-10 H Urine WBC 6-10 H Ur Squamous Epith Cells FEW Squamous Urine Bacteria Few Urine Mucus Few Strands Ur Microscopic Review INDICATED Urine Culture Comments INDICATED Urine HCG, Qual NEGATIVE PD MEDICAL DECISION MAKING - ED course Complexity details: reviewed results, considered differential, d/w patient ED course: 28-year-old female with urinary symptoms has urinary tract infection on evaluation of the urinary sediment we will place her on some . Departure - Departure Disposition: 01 Home, Self Care Clinical Impression: UTI (urinary tract infection) Qualifiers: Urinary tract infection type: acute cystitis Hematuria presence: with hematuria Qualified Code(s): N30.01 - Acute cystitis with hematuria Condition: Stable Instructions: ED UTI Cystitis Female Follow-Up: [facility] [Provider Group] Prescriptions: Sulfamethoxazole/Trimethoprim [Sulfamethoxazole-Tmp Ds Tablet] 1 each PO BID #10 tablet
== END 2018-11-07 12:44 | disposition home or self-care (01) ==
LOC: ED 11:22
DX: N30.01 Acute cystitis with hematuria (principal)
CPT/HCPCS: 81001; 81003; 81025; 87086; 87181; 99283

== ENCOUNTER 2019-02-08 14:43 | Outpatient (CLI) | payer MEDICAID | END 2019-02-08 14:44 | disposition home or self-care (01) | LOC: LAB 14:43 | PROVIDERS: ATTEND Obstetrics & Gynecology | DX: Z32.02 Encounter for pregnancy test, result negative (principal) | CPT/HCPCS: 36415; 84702 ==

== ENCOUNTER 2020-02-26 19:22 | Emergency (ER) | payer MEDICAID ==
[2020-02-26 20:17] LABS: BILIRUBIN,URINE NEGATIVE (NEGATIVE); GLUCOSE, URINE (UA) NEGATIVE (NEGATIVE); KETONES,URINE (UA) 15 mg/dL (NEGATIVE); LEUKOCYTE ESTERASE, URINE LARGE (NEGATIVE); NITRITE,URINE NEGATIVE (NEGATIVE); OCCULT BLOOD,URINE MODERATE (NEGATIVE); PROTEIN,URINE TRACE mg/dL (NEGATIVE); UROBILINOGEN,URINE 1 (NORMAL) E.U./dL (NORMAL)
[2020-02-26 20:19] LABS: HCG UR QUAL NEGATIVE
[2020-02-26 20:20] LABS: CLARITY,URINE HAZY (CLEAR)
[2020-02-26 20:24] LABS: BACTERIA,URINE Few /HPF (None Seen); MUCUS,URINE Few Strands; SQUAMOUS EPITHELIAL CELL,UR FEW Squamous (<= Few)
[2020-02-26] MEDS ORDERED: PHENAZOPYRIDINE 100 MG TABLET PO STA (20:30)
[2020-02-26] MEDS ORDERED: NITROFURANTOIN MACRO 100 MG CAPSULE PO STA (20:30)
--- NOTE | 2020-02-26 20:32 | ED Physician Documentation ---
PD HPI FEMALE - Stated complaint Stated Complaint: FEMALE - Chief complaint Chief Complaint: UTI - History obtained from History obtained from: Patient (29yo woman with relatively frequent UTIs may be 2-3 times a year presents with a week's worth of burning dysuria frequency and foul-smelling urine. 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 Psych: Depression - Past Surgical History Past Surgical History: Yes Neuro: Other - Present Medications Home Medications: Ambulatory Orders Medication Instructions Recorded Confirmed Escitalopram [Lexapro] 20 mg PO DAILY 05/27/15 05/29/17 Ibuprofen [Motrin] 800 mg PO Q8H PRN #30 tablet 02/01/17 05/29/17 Cetirizine [ZyrTEC] 10 mg PO DAILY #15 tablet 05/23/17 05/29/17 Cephalexin [Keflex] 500 mg PO QID #21 capsule 01/27/18 Cetirizine [ZyrTEC] 10 mg PO DAILY #20 tablet 01/27/18 Nortriptyline HCl 25 mg pe 01/27/18 Tramadol HCl 50 mg PO Q6H PRN #20 tablet 01/27/18 dexAMETHasone [Decadron] 4 mg PO DAILY #7 tablet 01/27/18 Sulfamethoxazole/Trimethoprim 1 each PO BID #10 tablet 11/07/18 [Sulfamethoxazole-Tmp Ds Tablet] Nitrofurantoin Monohyd/M-Cryst 100 mg PO BID #10 capsule 02/26/20 [Macrobid 100 mg Capsule] Phenazopyridine HCl [Pyridium] 200 mg PO TID PRN #6 tablet 02/26/20 - Allergies Allergies/Adverse Reactions: Allergies Allergy/AdvReac Type Severity Reaction Status Date / Time No Known Drug Allergies Allergy Verified 02/26/20 19:40 - Social History Does the pt smoke?: No Smoking Status: Never smoker Does the pt drink ETOH?: Yes Does the pt have substance abuse?: No - Immunizations Immunizations are current?: Yes Immunizations: TDAP >10years/unknown - POLST Patient has POLST: No PD ED PE NORMAL - Vitals Vital signs reviewed: Yes - General General: 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, No acute distress - Abdomen Abdomen: Soft, Non tender - Back Back: No CVA TTP - Derm Derm: No rash - Neuro Neuro: 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, Normal speech Results - Vitals Vitals: Vital Signs - 24 hr 02/26/20 19:37 Temperature 36.0 C L Heart Rate 88 Respiratory 16 Rate Blood Pressure 129/74 O2 Saturation 99 Oxygen O2 Source Room air - Labs Labs: Laboratory Tests 02/26/20 02/26/20 20:02 20:02 Urine Color YELLOW Urine Clarity HAZY Urine pH 6.0 Ur Specific [place] 1.020 1.020 Urine Protein TRACE Urine Glucose (UA) NEGATIVE Urine Ketones 15 H Urine Occult Blood MODERATE H Urine Nitrite NEGATIVE Urine Bilirubin NEGATIVE Urine Urobilinogen 1 (NORMAL) Ur Leukocyte Esterase LARGE H Urine RBC 11-25 H Urine WBC >25 H Ur Squamous Epith Cells FEW Squamous Urine Bacteria Few Urine Mucus Few Strands Ur Microscopic Review INDICATED Urine Culture Comments INDICATED Urine HCG, Qual NEGATIVE Departure - Departure Disposition: 01 Home, Self Care Clinical Impression: Cystitis Condition: Good Record reviewed to determine appropriate education?: Yes Instructions: ED UTI Cystitis Female Prescriptions: Nitrofurantoin Monohyd/M-Cryst [Macrobid 100 mg Capsule] 100 mg PO BID #10 capsule Phenazopyridine HCl [Pyridium] 200 mg PO TID PRN #6 tablet PRN Reason: dysuria Comments: We will culture your urine, the results should be done in 48-72 hours. If an antibiotic change is necessary we will call you. Return if worse in the meantime, especially if you develop increasing flank pain, fevers, or cannot keep down the medication.
[2020-02-26 20:44] VITALS: BP 137/102
== END 2020-02-26 20:44 | disposition home or self-care (01) ==
LOC: ED 19:22
DX: N30.90 Cystitis, unspecified without hematuria (principal)
CPT/HCPCS: 81001; 81025; 87086; 99283; A9270; 81003

== ENCOUNTER 2020-03-07 09:45 | Outpatient (CLI) | payer MEDICAID ==
[2020-03-07 11:55] LABS: BASOPHILS % (AUTO) 0.7 %; EOSINOPHILS # (AUTO) 0.5 10^3/uL (0.0-0.7); EOSINOPHILS % (AUTO) 9.1 %; LYMPHOCYTES # (AUTO) 2.2 10^3/uL (1.5-3.5); LYMPHOCYTES % (AUTO) 36.8 %; MEAN CORPUSCULAR HEMOGLOBIN 29.3 pg (27.0-31.0); MEAN CORPUSCULAR HGB CONC 31.2 g/dL (32.0-36.0); MEAN CORPUSCULAR VOLUME 94.1 fL (81.0-99.0); MEAN PLATELET VOLUME 10.8 fL (7.9-10.8); MONOCYTES # (AUTO) 0.5 10^3/uL (0.0-1.0); MONOCYTES % (AUTO) 7.7 %; NEUTROPHILS # (AUTO) 2.7 10^3/uL (1.5-6.6); NEUTROPHILS % (AUTO) 45.4 %; PLT - PLATELET COUNT 275 10^3/uL (130-450); RED BLOOD COUNT 4.09 10^6/uL (4.20-5.40); RED CELL DISTRIBUTION WIDTH 12.6 % (12.0-15.0)
[2020-03-07 12:05] LABS: ALBUMIN/GLOBULIN RATIO 1.3 (1.0-2.2); BILIRUBIN,TOTAL 0.2 mg/dL (0.2-1.0); CALCIUM 8.5 mg/dL (8.5-10.3); CREATININE 0.7 mg/dL (0.4-1.0)
[2020-03-07 12:24] LABS: PROLACTIN 12.83 ng/mL
== END 2020-03-07 09:46 | disposition home or self-care (01) ==
LOC: LAB.WCP 09:45
PROVIDERS: ATTEND Nurse Practitioner Family
DX: E23.6 Other disorders of pituitary gland (principal)
CPT/HCPCS: 36415; 80053; 84146; 84443; 85025

== ENCOUNTER 2020-04-04 08:44 | Outpatient (CLI) | payer MEDICAID ==
[2020-04-04] MEDS ORDERED: GADOBUTROL 7.5 MMOL/7.5 ML VIAL ONE (09:08)
[2020-04-04] MEDS ORDERED: GADOBUTROL 7.5 MMOL/7.5 ML VIAL IVP ONE (09:50)
--- NOTE | 2020-04-04 12:39 | MRI Report ---
PROCEDURE: Brain W/WO INDICATIONS: PITUITARY CYST CONTRAST: IV CONTRAST: Gadavist ml: 5.5 TECHNIQUE: Noncontrast sagittal and axial FLAIR, axial gradient echo, axial diffusion and ADC through the brain. Thin-slice sagittal and coronal T1 spin echo, coronal T2 fast spin echo through the pituitary. Aft er the administration contrast, optional dynamic coronal T1 spin echo, thin-slice coronal and sagitta l T1 spin echo images through the pituitary fossa; axial T1 spin echo with fat saturation through the brain. COMPARISON: None. FINDINGS: Image quality: Excellent. Pituitary Gland: There is a lesion with rounded contours involving the anterior-superior margin of t he pituitary gland. Lesion demonstrates hyperintense T1 signal. It measures approximately 7 mm in valeria meter in the current study which is increased slightly in size compared to 10/16/2018 (6 mm). No appre ciable postcontrast enhancement is associated with the lesion. CSF Spaces: Ventricles are normal in size and shape. Basal cisterns are patent. No extra-axial flu id collections. Brain: No intracranial bleeds or mass effects. No abnormal intracranial enhancement. Shin-white ma tter interface is intact. Diffusion weighted images demonstrate no acute ischemic insults. Brainste m is normal. Normal intravascular flow voids are present. Skull and face: Calvarial marrow is normal in signal. Orbits appear normal. Sinuses: Sinuses and mastoids are clear. IMPRESSION: 1. Pituitary cyst slightly increased in size compared to 10/16/2018 measuring 7 mm in diameter on the current study (5 mm previously. 2. Otherwise, stable examination. Reviewed by: Dunia Gutierrez MD, PhD on 04/04/2020 12:38 PM PST Approved by: Dunia Gutierrez MD, PhD on 04/04/2020 12:38 PM PST Station ID: [id number]
== END 2020-04-04 08:45 | disposition home or self-care (01) ==
LOC: DI 08:44
PROVIDERS: ATTEND Nurse Practitioner Family
DX: E23.6 Other disorders of pituitary gland (principal)
CPT/HCPCS: 70553; A9585

== ENCOUNTER 2020-06-07 13:02 | Outpatient (CLI) | payer MEDICAID ==
[2020-06-07 14:10] LABS: CALCIUM 9.2 mg/dL (8.5-10.3); CREATININE 0.9 mg/dL (0.4-1.0)
[2020-06-07 14:29] LABS: CORTISOL 7.4 ug/dL
[2020-06-07 14:31] LABS: THYROID STIMULATING HORMONE 0.82 uIU/mL (0.34-5.60)
[2020-06-07 14:36] LABS: FREE T4 (FREE THYROXINE) 1.15 ng/dL (0.58-1.64)
[2020-06-07 14:37] LABS: PROLACTIN 16.36 ng/mL
[2020-06-07 14:59] LABS: FOLLICLE STIMULATING HORMONE 5.06 mIU/mL
[2020-06-07 15:00] LABS: LUTEINIZING HORMONE 34.34 mIU/mL
--- OUTSIDE RECORDS SUMMARY | 2020-06-13 01:12 | EXTERNAL MEDICAL SUMMARY RPT | Continuity of Care Document ---
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
== END 2020-06-07 13:03 | disposition home or self-care (01) ==
LOC: LAB 13:02
PROVIDERS: ATTEND Nurse Practitioner
DX: E23.6 Other disorders of pituitary gland (principal); R53.82 Chronic fatigue, unspecified; N92.6 Irregular menstruation, unspecified; R53.81 Other malaise; R63.1 Polydipsia
CPT/HCPCS: 36415; 80048; 81599; 82024; 82533; 82670; 83001; 83002; 83930; 83935; 84146; 84305; 84439; 84443

== ENCOUNTER 2020-06-21 13:28 | Outpatient (CLI) | payer MEDICAID ==
[2020-06-21 18:31] LABS: CLARITY,URINE CLEAR (CLEAR); LEUKOCYTE ESTERASE, URINE NEGATIVE (NEGATIVE); NITRITE,URINE NEGATIVE (NEGATIVE); OCCULT BLOOD,URINE TRACE-LYSED (NEGATIVE); PH,URINE 6.5 PH (5.0-7.5); PROTEIN,URINE NEGATIVE (NEGATIVE); UROBILINOGEN,URINE 0.2 (NORMAL) E.U./dL (NORMAL)
[2020-06-21 18:32] LABS: BILIRUBIN,URINE NEGATIVE (NEGATIVE); GLUCOSE, URINE (UA) NEGATIVE (NEGATIVE); KETONES,URINE (UA) NEGATIVE (NEGATIVE)
== END 2020-06-21 13:29 | disposition home or self-care (01) ==
LOC: LAB 13:28
PROVIDERS: ATTEND Nurse Practitioner
DX: E23.6 Other disorders of pituitary gland (principal); R53.82 Chronic fatigue, unspecified; R53.81 Other malaise; R63.1 Polydipsia; Z98.890 Other specified postprocedural states
CPT/HCPCS: 81003; 81599; 82024; 83935

== ENCOUNTER 2020-07-26 07:00 | Outpatient (CLI) | payer MEDICAID | END 2020-07-26 07:01 | disposition home or self-care (01) | LOC: LAB.R 07:00 | PROVIDERS: ATTEND Family Medicine | DX: R06.00 Dyspnea, unspecified (principal); Z20.822 Contact with and (suspected) exposure to COVID-19 | CPT/HCPCS: 87275; 87276 ==

== ENCOUNTER 2020-07-26 11:34 | Outpatient (CLI) | payer MEDICAID ==
--- NOTE | 2020-07-26 13:34 | XRAY Report ---
PROCEDURE: Ribs w/PA Chest RT INDICATIONS: RIB PAIN, RIGHT SIDED TECHNIQUE: 2 views of the right ribs were acquired, along with a single view chest. COMPARISON: Chest x-ray dated 12/28/2017 FINDINGS: Surgical changes and devices: None. Bones and chest wall: No fractures or dislocations. No suspicious bony lesions. Overlying soft tis sues appear unremarkable. Lungs and pleura: No pleural effusions or pneumothorax. Lungs appear clear. Mediastinum: Mediastinal contours appear normal. Heart size is normal. IMPRESSION: No acute fracture. No osseous lesion. If symptoms and/or clinical suspicion for pathology continue, f urther assessment with repeat plain films, or advanced imaging (e.g., CT, MRI, or bone scan) is recom mended for further assessment. Reviewed by: Sanchez Domínguez MD on 07/26/2020 1:33 PM PST Approved by: Sanchez Domínguez MD on 07/26/2020 1:33 PM PST Station ID: [id number]
== END 2020-07-26 23:59 | disposition home or self-care (01) ==
LOC: DI.N 11:34
PROVIDERS: ATTEND Family Medicine
DX: R07.81 Pleurodynia (principal); M25.561 Pain in right knee; M25.562 Pain in left knee; R06.00 Dyspnea, unspecified; Z20.822 Contact with and (suspected) exposure to COVID-19
CPT/HCPCS: 87275; 87276

== ENCOUNTER 2020-12-24 07:17 | Outpatient (CLI) | payer MEDICAID ==
[2020-12-24] MEDS ORDERED: GADOBUTROL 10 MMOL/10 ML VIAL ONE (07:28)
--- NOTE | 2020-12-24 09:52 | MRI Report ---
PROCEDURE: Brain W/WO INDICATIONS: PITUITARY CYST CONTRAST: IV CONTRAST: Gadavist ml: 6.1 TECHNIQUE: Noncontrast sagittal and axial FLAIR, axial gradient echo, axial diffusion and ADC through the brain. Thin-slice sagittal and coronal T1 spin echo, coronal T2 fast spin echo through the pituitary. Aft er the administration contrast, optional dynamic coronal T1 spin echo, thin-slice coronal and sagitta l T1 spin echo images through the pituitary fossa; axial T1 spin echo with fat saturation through the brain. COMPARISON: None. FINDINGS: Image quality: Excellent. Pituitary Gland: Hyperintense T1 and T2 lesion involving the anterior-superior margin of the pituita ry gland is stable in size and contour compared to prior study obtained 04/04/2020. No postcontrast en hancement associated with the lesion. CSF Spaces: Ventricles are normal in size and shape. Basal cisterns are patent. No extra-axial flu id collections. Brain: No intracranial bleeds or mass effects. No abnormal intracranial enhancement. Shin-white ma tter interface is intact. Diffusion weighted images demonstrate no acute ischemic insults. Brainste m is normal. Normal intravascular flow voids are present. Skull and face: Calvarial marrow is normal in signal. Orbits appear normal. Sinuses: Sinuses and mastoids are clear. IMPRESSION: Pituitary cyst is stable compared to 04/04/2020. Reviewed by: Dunia Gutierrez MD, PhD on 12/24/2020 9:50 AM PDT Approved by: Dunia Gutierrez MD, PhD on 12/24/2020 9:50 AM PDT Station ID: [id number]
[2020-12-24] MEDS ORDERED: GADOBUTROL 10 MMOL/10 ML VIAL IVP ONE (16:01)
== END 2020-12-24 07:18 | disposition home or self-care (01) ==
LOC: DI 07:17
PROVIDERS: ATTEND Neurological Surgery
DX: E23.6 Other disorders of pituitary gland (principal)
CPT/HCPCS: 70553; A9585

== ENCOUNTER 2021-01-19 20:25 | Emergency (ER) | payer MEDICAID ==
[2021-01-19 20:55] LABS: GLUCOSE, URINE (UA) NEGATIVE (NEGATIVE); KETONES,URINE (UA) TRACE mg/dL (NEGATIVE); LEUKOCYTE ESTERASE, URINE SMALL (NEGATIVE); NITRITE,URINE NEGATIVE (NEGATIVE); OCCULT BLOOD,URINE SMALL (NEGATIVE); PH,URINE 5.5 PH (5.0-7.5); PROTEIN,URINE 30 mg/dL (NEGATIVE); UROBILINOGEN,URINE 2 E.U./dL (NORMAL)
[2021-01-19] MEDS ORDERED: PHENAZOPYRIDINE 100 MG TABLET PO STA (20:56)
[2021-01-19] MEDS ORDERED: NITROFURANTOIN MACRO 100 MG CAPSULE PO STA (20:57)
--- NOTE | 2021-01-19 20:58 | ED Physician Documentation ---
PD HPI FEMALE - Stated complaint Stated Complaint: FEMALE - Chief complaint Chief Complaint: UTI - History obtained from History obtained from: Patient - History of Present Illness Timing - onset: How many hours ago (3) Timing - duration: Hours (3) Timing - details: Abrupt onset Pain level max: 3 Pain level max: 3 Associated symptoms: Dysuria, Urinary frequency. No: Fever, Vaginal pain, Vaginal bleeding, Vaginal discharge, Genital sore/lesion Similar symptoms before: Diagnosis (recurrent UTI) Recently seen: Not recently seen Review of Systems Constitutional: denies: Fever, Chills Respiratory: denies: Cough GI: denies: Abdominal Pain, Nausea, Vomiting, Diarrhea : reports: Dysuria, Frequency, Hesitancy. 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 HEENT: None Psych: Depression, Anxiety, Post traumatic stress disorder Musculoskeletal: Fibromyalgia Derm: None - Past Surgical History Past Surgical History: Yes Neuro: Other - Present Medications Home Medications: Ambulatory Orders Medication Instructions Recorded Confirmed Escitalopram [Lexapro] 20 mg PO DAILY 05/27/15 01/19/21 Cetirizine [ZyrTEC] 10 mg PO DAILY #20 tablet 01/27/18 01/19/21 Nitrofurantoin [Macrobid] 100 mg PO BID #10 cap 01/19/21 Phenazopyridine HCl [Pyridium] 200 mg PO TID PRN #6 tablet 01/19/21 clonazePAM [Clonazepam] 1 mg PO DAILY PRN 01/19/21 01/19/21 - Allergies Allergies/Adverse Reactions: Allergies Allergy/AdvReac Type Severity Reaction Status Date / Time No Known Drug Allergies Allergy Verified 01/19/21 20:36 - Social History Does the pt smoke?: No Smoking Status: Never smoker Does the pt drink ETOH?: No Does the pt have substance abuse?: No - Immunizations Immunizations are current?: Yes Immunizations: TDAP >10years/unknown - POLST Patient has POLST: No PD ED PE NORMAL - Vitals Vital signs reviewed: Yes - General General: 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, No acute distress - HEENT HEENT: Moist mucous membranes - Neck Neck: Supple, no meningeal sign - Respiratory Respiratory: No respiratory distress - Abdomen Abdomen: Soft, Non tender, Non distended - Back Back: No CVA TTP - Derm Derm: Warm and dry - Neuro Neuro: 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 Results - Vitals Vitals: Vital Signs - 24 hr 01/19/21 01/19/21 20:32 21:09 Temperature 36.2 C L 36.8 C Heart Rate 93 94 Respiratory 14 18 Rate Blood Pressure 119/85 H 109/79 O2 Saturation 100 100 Oxygen O2 Source Room air - Labs Labs: Laboratory Tests 01/19/21 20:50 Urine Color DARK YELLOW Urine Clarity HAZY Urine pH 5.5 Ur Specific [place] >=1.030 H Urine Protein 30 H Urine Glucose (UA) NEGATIVE Urine Ketones TRACE Urine Occult Blood SMALL H Urine Nitrite NEGATIVE Urine Bilirubin NEGATIVE Urine Urobilinogen 2 H Ur Leukocyte Esterase SMALL H Urine RBC 6-10 H Urine WBC 11-25 H Ur Squamous Epith Cells FEW Squamous Urine Bacteria Moderate H Urine Mucus Moderate Strands Ur Microscopic Review INDICATED Urine Culture Comments INDICATED Urine HCG, Qual NEGATIVE PD MEDICAL DECISION MAKING - ED course Complexity details: reviewed results, considered differential, d/w patient ED course: Patient with a UTI. No evidence of sepsis or pyelonephritis. Will place on antibiotics for home. Patient is well-appearing, nontoxic. Afebrile. Patient counseled regarding signs and symptoms for which I believe and urgent re- evaluation would be necessary. Patient with good understanding of and agreement to plan and is comfortable going home at this time This document was made in part using voice recognition software. While efforts are made to proofread this document, sound alike and grammatical errors may occur. Departure - Departure Disposition: 01 Home, Self Care Clinical Impression: UTI (urinary tract infection) Qualifiers: Urinary tract infection type: acute cystitis Hematuria presence: without hematuria Qualified Code(s): N30.00 - Acute cystitis without hematuria Condition: Good Instructions: ED UTI Cystitis Female Follow-Up: your,doctor as needed [Other] Prescriptions: Nitrofurantoin [Macrobid] 100 mg PO BID #10 cap Phenazopyridine HCl [Pyridium] 200 mg PO TID PRN #6 tablet PRN Reason: dysuria Comments: Your prescriptions were sent to [facility] in [place]. Take all antibiotics until gone. Return if you worsen. Follow-up with your doctor as needed for further care. Discharge Date/Time: 01/19/21 21:17
[2021-01-19 21:01] LABS: BILIRUBIN,URINE NEGATIVE (NEGATIVE); CLARITY,URINE HAZY (CLEAR); HCG UR QUAL NEGATIVE; ICTOTEST,URINE NEGATIVE
[2021-01-19 21:10] VITALS: BP 109/79
[2021-01-19 21:11] LABS: BACTERIA,URINE Moderate /HPF (None Seen); MUCUS,URINE Moderate Strands; SQUAMOUS EPITHELIAL CELL,UR FEW Squamous (<= Few)
== END 2021-01-19 21:17 | disposition home or self-care (01) ==
LOC: ED 20:25
DX: N30.00 Acute cystitis without hematuria (principal)
CPT/HCPCS: 81001; 81025; 87086; 87181; 99283; 99284; A9270; 81003

== ENCOUNTER 2021-01-27 16:30 | Emergency (ER) | payer MEDICAID ==
--- NOTE | 2021-01-27 16:56 | ED Physician Documentation ---
PD HPI MHE - Stated complaint Stated Complaint: MHE - Chief complaint Chief Complaint: MHE - History obtained from History obtained from: Patient - Additional information Additional information: 30-year-old woman with longstanding anxiety, depression, and self cutting. She has chronic suicidal ideation but more acute recently due to some relationship issues. She does not currently have a plan. She wrote out suicide note and put on Facebook necessitating a wellness check and her mother brought her in. 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 HEENT: None Psych: Depression, Anxiety, Post traumatic stress disorder Musculoskeletal: Fibromyalgia Derm: None - Past Surgical History Past Surgical History: Yes Neuro: Other - Present Medications Home Medications: Ambulatory Orders Medication Instructions Recorded Confirmed Escitalopram [Lexapro] 30 mg PO DAILY 05/27/15 01/27/21 Cetirizine [ZyrTEC] 10 mg PO DAILY #20 tablet 01/27/18 01/27/21 clonazePAM [Clonazepam] 1 mg PO DAILY PRN 01/19/21 01/27/21 traZODone [Desyrel] 50 mg PO HS #10 tablet 01/27/21 - Allergies Allergies/Adverse Reactions: Allergies Allergy/AdvReac Type Severity Reaction Status Date / Time No Known Drug Allergies Allergy Verified 01/27/21 16:42 - Social History Does the pt smoke?: No Smoking Status: Never smoker Does the pt drink ETOH?: No Does the pt have substance abuse?: No - Immunizations Immunizations are current?: Yes Immunizations: TDAP >10years/unknown - POLST Patient has POLST: No PD ED PE NORMAL - Vitals Vital signs reviewed: Yes - General General: 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, Other (Tearful) - HEENT HEENT: PERRL, EOMI - Neck Neck: Supple, no meningeal sign, No bony TTP - Cardiac Cardiac: RRR, No murmur - Respiratory Respiratory: No respiratory distress, Clear bilaterally - Abdomen Abdomen: Normal bowel sounds, Soft, Non tender - Back Back: No CVA TTP, No spinal TTP - Derm Derm: Normal color, Warm and dry - Extremities Extremities: No edema, No calf tenderness / cord, Other (Multiple shallow self- inflicted lacerations to left anterior forearm) - Neuro Neuro: 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, Normal speech Results - Vitals Vitals: Vital Signs - 24 hr 01/27/21 01/27/21 01/27/21 16:38 17:35 21:05 Temperature 36.7 C 36.7 C 36.2 C L Heart Rate 70 60 59 L Respiratory 16 16 16 Rate Blood Pressure 145/71 H 122/76 121/91 H O2 Saturation 2 L 99 97 Oxygen O2 Source Room air - Labs Labs: Laboratory Tests 01/27/21 01/27/21 01/27/21 17:01 17:01 17:01 WBC 7.0 RBC 4.21 Hgb 12.5 Hct 39.4 MCV 93.6 MCH 29.7 MCHC 31.7 L RDW 12.5 Plt Count 281 MPV 9.9 Neut # (Auto) 4.6 Lymph # (Auto) 1.5 [place] # (Auto) 0.4 Eos # (Auto) 0.4 Baso # (Auto) 0.0 Absolute Nucleated RBC 0.00 Nucleated RBC % 0.0 Sodium 138 Potassium 3.6 Chloride 102 Carbon Dioxide 29 Anion Gap 7.0 BUN 11 Creatinine 0.9 Estimated GFR (MDRD) 74 L Glucose 94 Calcium 8.7 Total Bilirubin 0.8 AST 22 ALT 30 Alkaline Phosphatase 50 Total Protein 7.9 Albumin 4.1 Globulin 3.8 Albumin/Globulin Ratio 1.1 Lipase 41 TSH 0.89 Urine Color Urine Clarity Urine pH Ur Specific [place] Urine Protein Urine Glucose (UA) Urine Ketones Urine Occult Blood Urine Nitrite Urine Bilirubin Urine Urobilinogen Ur Leukocyte Esterase Urine RBC Urine WBC Ur Squamous Epith Cells Urine Bacteria Ur Microscopic Review Urine Culture Comments Urine HCG, Qual Nasal Adenovirus (PCR) Nasal B. parapertussis DNA (PCR) Nasal Coronavir 229E PCR Nasal Coronavir HKU1 PCR Nasal Coronavir NL63 PCR Nasal Coronavir OC43 PCR Nasal Enterovir/Rhinovir PCR Nasal Influenza B PCR Nasal Influenza A PCR Nasal Parainfluen 1 PCR Nasal Parainfluen 2 PCR Nasal Parainfluen 3 PCR Nasal Parainfluen 4 PCR Nasal RSV (PCR) Nasal B.pertussis DNA PCR Nasal C.pneumoniae (PCR) Felix Human Metapneumo PCR Nasal M.pneumoniae (PCR) Nasal SARS-CoV-2 (PCR) Salicylates < 6.0 Urine Opiates Screen Ur Oxycodone Screen Urine Methadone Screen Ur Propoxyphene Screen Acetaminophen < 10 L Ur Barbiturates Screen Ur Tricyclics Screen Ur Phencyclidine Scrn Ur Amphetamine Screen U Methamphetamines Scrn U Benzodiazepines Scrn Urine Cocaine Screen U Cannabinoids Screen Ethyl Alcohol < 5.0 01/27/21 01/27/21 17:25 18:00 WBC RBC Hgb Hct MCV MCH MCHC RDW Plt Count MPV Neut # (Auto) Lymph # (Auto) [place] # (Auto) Eos # (Auto) Baso # (Auto) Absolute Nucleated RBC Nucleated RBC % Sodium Potassium Chloride Carbon Dioxide Anion Gap BUN Creatinine Estimated GFR (MDRD) Glucose Calcium Total Bilirubin AST ALT Alkaline Phosphatase Total Protein Albumin Globulin Albumin/Globulin Ratio Lipase TSH Urine Color YELLOW Urine Clarity HAZY Urine pH 5.5 Ur Specific [place] 1.020 Urine Protein NEGATIVE Urine Glucose (UA) NEGATIVE Urine Ketones NEGATIVE Urine Occult Blood SMALL H Urine Nitrite NEGATIVE Urine Bilirubin NEGATIVE Urine Urobilinogen 0.2 (NORMAL) Ur Leukocyte Esterase NEGATIVE Urine RBC 0-5 Urine WBC 0-3 Ur Squamous Epith Cells FEW Squamous Urine Bacteria Few Ur Microscopic Review INDICATED Urine Culture Comments NOT INDICATED Urine HCG, Qual NEGATIVE Nasal Adenovirus (PCR) NOT DETECTED Nasal B. parapertussis DNA (PCR) NOT DETECTED Nasal Coronavir 229E PCR NOT DETECTED Nasal Coronavir HKU1 PCR NOT DETECTED Nasal Coronavir NL63 PCR NOT DETECTED Nasal Coronavir OC43 PCR NOT DETECTED Nasal Enterovir/Rhinovir PCR NOT DETECTED Nasal Influenza B PCR NOT DETECTED Nasal Influenza A PCR NOT DETECTED Nasal Parainfluen 1 PCR NOT DETECTED Nasal Parainfluen 2 PCR NOT DETECTED Nasal Parainfluen 3 PCR NOT DETECTED Nasal Parainfluen 4 PCR NOT DETECTED Nasal RSV (PCR) NOT DETECTED Nasal B.pertussis DNA PCR NOT DETECTED Nasal C.pneumoniae (PCR) NOT DETECTED Felix Human Metapneumo PCR NOT DETECTED Nasal M.pneumoniae (PCR) NOT DETECTED Nasal SARS-CoV-2 (PCR) NOT DETECTED Salicylates Urine Opiates Screen NEGATIVE Ur Oxycodone Screen NEGATIVE Urine Methadone Screen NEGATIVE Ur Propoxyphene Screen NEGATIVE Acetaminophen Ur Barbiturates Screen NEGATIVE Ur Tricyclics Screen NEGATIVE Ur Phencyclidine Scrn NEGATIVE Ur Amphetamine Screen NEGATIVE U Methamphetamines Scrn NEGATIVE U Benzodiazepines Scrn NEGATIVE Urine Cocaine Screen NEGATIVE U Cannabinoids Screen POSITIVE H Ethyl Alcohol PD MEDICAL DECISION MAKING - ED course ED course: Initial plan was to seek psychiatric hospitalization for this very depressed young woman who is chronically suicidal but without acute plan. That said she had written a suicide note and put it on Facebook. We were waiting for some facilities call us back if she was medically clear but the patient requested to leave. She contracted for safety and plans to see her therapist tomorrow. She is hopeful and gives good reasoning to wanting to leave such that she wants to make sure that you are taking care of should she go to an inpatient facility. With her permission I also discussed with her mom who feels like she is safe for discharge and will watch her tonight. Departure - Departure Disposition: 01 Home, Self Care Clinical Impression: Depression Qualifiers: Depression Type: major depressive disorder Major depression recurrence: recurrent Active/Remission status: currently active Major depression episode severity: severe Psychotic features: without psychotic features Qualified Code(s): F33.2 - Major depressive disorder, recurrent severe without psychotic features Condition: Good Record reviewed to determine appropriate education?: Yes Instructions: ED Depression Prescriptions: traZODone [Desyrel] 50 mg PO HS #10 tablet Comments: Follow-up with your therapist tomorrow as scheduled, return for new or worsening symptoms. Or if you decide you would like us to reevaluate getting you to an inpatient psychiatric facility from here. Discharge Date/Time: 01/27/21 21:17
[2021-01-27 17:05] LABS: BASOPHILS % (AUTO) 0.4 %; EOSINOPHILS # (AUTO) 0.4 10^3/uL (0.0-0.7); EOSINOPHILS % (AUTO) 5.9 %; HCT - HEMATOCRIT 39.4 % (37.0-47.0); HGB - HEMOGLOBIN 12.5 g/dL (12.0-16.0); LYMPHOCYTES # (AUTO) 1.5 10^3/uL (1.5-3.5); LYMPHOCYTES % (AUTO) 21.9 %; MEAN CORPUSCULAR HEMOGLOBIN 29.7 pg (27.0-31.0); MEAN CORPUSCULAR HGB CONC 31.7 g/dL (32.0-36.0); MEAN CORPUSCULAR VOLUME 93.6 fL (81.0-99.0); MEAN PLATELET VOLUME 9.9 fL (7.9-10.8); MONOCYTES # (AUTO) 0.4 10^3/uL (0.0-1.0); MONOCYTES % (AUTO) 5.6 %; NEUTROPHILS # (AUTO) 4.6 10^3/uL (1.5-6.6); NEUTROPHILS % (AUTO) 66.1 %; PLT - PLATELET COUNT 281 10^3/uL (130-450); RED BLOOD COUNT 4.21 10^6/uL (4.20-5.40); RED CELL DISTRIBUTION WIDTH 12.5 % (12.0-15.0)
[2021-01-27 17:34] LABS: ACETAMINOPHEN < 10 ug/mL (10-30); ALBUMIN 4.1 g/dL (3.2-5.5); ALBUMIN/GLOBULIN RATIO 1.1 (1.0-2.2); ALKALINE PHOSPHATASE 50 IU/L (42-121); ALT ALANINE AMINOTRANSFERASE 30 IU/L (10-60); AST ASPARTATE AMINOTRANSFERASE 22 IU/L (10-42); BILIRUBIN,TOTAL 0.8 mg/dL (0.2-1.0); BUN - BLOOD UREA NITROGEN 11 mg/dL (6-20); CALCIUM 8.7 mg/dL (8.5-10.3); CARBON DIOXIDE - CO2 29 mmol/L (21-32); CHLORIDE 102 mmol/L (101-111); CREATININE 0.9 mg/dL (0.4-1.0); ETOH - ETHANOL < 5.0 mg/dL; GFR - MDRD 74 (>89); GLUCOSE 94 mg/dL (70-100); LIPASE 41 U/L (22-51); POTASSIUM 3.6 mmol/L (3.5-5.0); SALICYLATE < 6.0 mg/dL; SODIUM 138 mmol/L (135-145); TOTAL PROTEIN 7.9 g/dL (6.7-8.2)
[2021-01-27 18:09] LABS: MUDS CUTOFF CONCENTRATIONS CUTOFF CONC BELOW:
[2021-01-27 18:11] LABS: BILIRUBIN,URINE NEGATIVE (NEGATIVE); GLUCOSE, URINE (UA) NEGATIVE (NEGATIVE); KETONES,URINE (UA) NEGATIVE (NEGATIVE); LEUKOCYTE ESTERASE, URINE NEGATIVE (NEGATIVE); NITRITE,URINE NEGATIVE (NEGATIVE); OCCULT BLOOD,URINE SMALL (NEGATIVE); PH,URINE 5.5 PH (5.0-7.5); PROTEIN,URINE NEGATIVE (NEGATIVE); UROBILINOGEN,URINE 0.2 (NORMAL) E.U./dL (NORMAL)
[2021-01-27 18:14] LABS: CLARITY,URINE HAZY (CLEAR); HCG UR QUAL NEGATIVE
[2021-01-27 18:17] LABS: CORONAVIRUS 229E-RESP PCR NOT DETECTED; CORONAVIRUS HKU1-RESP PCR NOT DETECTED; CORONAVIRUS NL63-RESP PCR NOT DETECTED; CORONAVIRUS OC43-RESP PCR NOT DETECTED; HUMAN METAPNEUMOVIRUS NOT DETECTED; RHINOVIRUS/ENTEROVIRUS NOT DETECTED; SARS-CoV-2 -RESP PCR PANEL NOT DETECTED
[2021-01-27 18:18] LABS: B. PARAPERTUSSIS- RESP PCR PAN NOT DETECTED; B. PERTUSSIS- RESP PCR PANEL NOT DETECTED; C. PNEUMONIAE- RESP PCR PANEL NOT DETECTED; INFLUENZA A- RESP PCR PANEL NOT DETECTED; INFLUENZA B - RESP PCR PANEL NOT DETECTED; M. PNEUMONIAE- RESP PCR PANEL NOT DETECTED; PARAINFLUENZA VIRUS 1 NOT DETECTED; PARAINFLUENZA VIRUS 2 NOT DETECTED; PARAINFLUENZA VIRUS 3 NOT DETECTED; PARAINFLUENZA VIRUS 4 NOT DETECTED; RSV- RESP PCR PANEL NOT DETECTED
[2021-01-27 18:20] LABS: WBC,URINE 0-3 /HPF (0-5)
[2021-01-27 18:21] LABS: BACTERIA,URINE Few /HPF (None Seen); RBC,URINE 0-5 /HPF (0-5); SQUAMOUS EPITHELIAL CELL,UR FEW Squamous (<= Few)
[2021-01-27 18:23] LABS: AMPHETAMINE SCREEN,URINE NEGATIVE (NEGATIVE); BARBITURATE SCREEN,UR NEGATIVE (NEGATIVE); BENZODIAZEPINES SCREEN, URINE NEGATIVE (NEGATIVE); COCAINE SCREEN URINE NEGATIVE (NEGATIVE); METHADONE SCREEN, URINE NEGATIVE (NEGATIVE); METHAMPHETAMINES SCREEN, URINE NEGATIVE (NEGATIVE); OPIATE SCREEN, URINE NEGATIVE (NEGATIVE); OXYCODONE SCREEN, URINE NEGATIVE (NEGATIVE); PROPOXYPHENE SCREEN, URINE NEGATIVE (NEGATIVE); THC CANNABINOID SCREEN, URINE POSITIVE (NEGATIVE); TRICYCLIC ANTIDEPRESSANT,URINE NEGATIVE (NEGATIVE)
[2021-01-27] MEDS ORDERED: traZODone 50 MG TABLET PO STA (21:07)
[2021-01-27 21:14] VITALS: BP 121/91
== END 2021-01-27 21:17 | disposition home or self-care (01) ==
LOC: ED 16:30
DX: F33.2 Major depressive disorder, recurrent severe without psychotic features (principal); R45.851 Suicidal ideations; S51.812A Laceration without foreign body of left forearm, initial encounter; X78.9XXA Intentional self-harm by unspecified sharp object, initial encounter; F41.9 Anxiety disorder, unspecified; F43.10 Post-traumatic stress disorder, unspecified; Z20.822 Contact with and (suspected) exposure to COVID-19
CPT/HCPCS: 0202U; 36415; 80053; 80306; 80307; 80320; 80329; 81001; 81025; 83690; 84443; 85025; 99283; A9270; 81003; 87086

== ENCOUNTER 2021-09-14 08:00 | Outpatient (CLI) | payer MEDICAID | END 2021-09-14 08:01 | disposition home or self-care (01) | LOC: LAB.N 08:00 | PROVIDERS: ATTEND Physician Assistant Medical | DX: N30.00 Acute cystitis without hematuria (principal) | CPT/HCPCS: 87086; 87181 ==

== ENCOUNTER 2022-10-23 08:40 | Outpatient (CLI) | payer MEDICAID ==
[~2022-10-23 08:40] MED LIST changes: -GADOBUTROL 7.5 MMOL/7.5 ML SYRINGE ONE; +GADOBUTROL 7.5 MMOL/7.5 ML VIAL ONE
[2022-10-23] MEDS ORDERED: GADOBUTROL 7.5 MMOL/7.5 ML VIAL IVP ONE (10:03)
--- NOTE | 2022-10-23 13:09 | MRI Report ---
PROCEDURE: BRAIN W/WO INDICATIONS: RATHKES POUCH CYST, PITUITARY CYST CONTRAST: GADAVIST 6.8 ML TECHNIQUE: Noncontrast sagittal and axial FLAIR, axial gradient echo, axial diffusion and ADC through the brain. Thin-slice sagittal and coronal T1 spin echo, coronal T2 fast spin echo through the pituitary. Aft er the administration contrast, optional dynamic coronal T1 spin echo, thin-slice coronal and sagitta l T1 spin echo images through the pituitary fossa; axial T1 spin echo with fat saturation through the brain. COMPARISON: 12/24/2020, 04/04/2020, 10/16/2018 FINDINGS: Image quality: Excellent. Pituitary Gland: There is again seen a nonenhancing T2 hyperintense cyst along the superior central aspect of the pituitary. This measures 7 mm craniocaudal by 8 mm transversely, with an AP extent of 9 mm. This is slightly increased in size compared to prior examinations. The pituitary gland otherwise demonstrates normal bulk and normal signal. A normal-appearing posterio r pituitary T1 hyperintense bright spot is seen. With administration of contrast, the pituitary demon strates normal-appearing, homogeneous contrast enhancement, without hyperenhancing or additional hypo enhancing lesions seen within it to suggest pituitary masses. The pituitary stalk is midline and demo nstrates no abnormal enhancement. The optic chiasm and the ventral forebrain demonstrate an unremarka ble appearance. CSF Spaces: Ventricles are normal in size and shape. Basal cisterns are patent. No extra-axial flu id collections. Brain: No intracranial bleeds or mass effects. No abnormal intracranial enhancement. Shin-white ma tter interface is intact. Diffusion weighted images demonstrate no acute ischemic insults. Brainste m is normal. Normal intravascular flow voids are present. Skull and face: Calvarial marrow is normal in signal. Orbits appear normal. Sinuses: Prior transphenoidal resection change can be seen. There is moderate mucosal thickening invo lving the left maxillary sinus. Minimal mucosal thickening can be seen elsewhere within the paranasal sinuses. No significant abnormal fluid can be seen within the mastoid air cells. IMPRESSION: Mild increase in size of the previously seen pituitary cyst, now measuring up to 9 mm, compared to 7 mm on the prior. Reviewed by: Luis Govea MD on 10/23/2022 12:07 PM ULISES Approved by: Luis Govea MD on 10/23/2022 12:07 PM AKDT Station ID: [id number]
--- NOTE | 2022-10-23 14:31 | Ultrasound Report ---
PROCEDURE: Head or Neck Soft Tissue INDICATIONS: ENLARGED THYROID TECHNIQUE: Real-time scanning was performed of the thyroid gland, with image documentation. COMPARISON: None FINDINGS: Right: Thyroid lobe measures 6.5 x 1.3 x 1.5 cm, and is homogeneous in echotexture. Left: Thyroid lobe measures 5.2 x 1.2 x 1.5 cm, and is homogenous in echotexture. Isthmus: 4 mm thick. No dominant nodule. There are 2 oval colloid cysts seen in the left lobe of the thyroid measuring up to 5 mm. IMPRESSION: 1. Normal size thyroid gland. 2. Benign subcentimeter left lobe colloid cysts. No dominant nodules. ACR TI-RADS definitions and recommendations: TI-RADS 1 (benign): 0 points. FNA not needed. TI-RADS 2 (not suspicious): 2 points. FNA not needed. TI-RADS 3 (mildly suspicious): 3 points. "FNA if 2.5 cm or larger, follow up if 1.5 cm or larger (at 1, 3, and 5 years). TI-RADS 4 (moderately suspicious): 4-6 points. "FNA if 1.5 cm or larger, follow up if 1 cm or larger (at 1, 2, 3, and 5 years). TI-RADS 5 (highly suspicious): 7 points or more. "FNA if 1 cm or larger, follow up if 0.5 cm or larger (every year for 5 years). Reviewed by: Nadia Meneses MD on 10/23/2022 2:29 PM PDT Approved by: Nadia Meneses MD on 10/23/2022 2:29 PM PDT Station ID: [id number]
== END 2022-10-23 08:41 | disposition home or self-care (01) ==
LOC: DI 08:40
PROVIDERS: ATTEND Nurse Practitioner Family
DX: E23.6 Other disorders of pituitary gland (principal); E04.2 Nontoxic multinodular goiter; G43.909 Migraine, unspecified, not intractable, without status migrainosus
CPT/HCPCS: 70553; 76536; A9585

== ENCOUNTER 2023-03-08 12:50 | Emergency (ER) | payer MEDICAID ==
[2023-03-08 13:04] VITALS: BP 127/80; O2SAT 99
[2023-03-08] MEDS ORDERED: PROCHLORPERAZINE 10 MG/2 ML VIAL IVP STA (13:53)
[2023-03-08] MEDS ORDERED: KETOROLAC 30 MG/ML VIAL IVP STA (13:53)
[2023-03-08] MEDS ORDERED: diphenhydrAMINE INJ 50 MG/ML VIAL IVP STA (13:53)
--- NOTE | 2023-03-08 13:58 | ED Physician Documentation ---
History of Present Illness - Stated complaint Stated Complaint: HEAD PX/VISION PROBLEMS - Chief complaint Chief Complaint: Neuro - Additonal information Additional information: 32-year-old female presents emergency department for evaluation of headache and diplopia. She does have a longstanding history of migraines which are typically resolved with Excedrin. 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 She has had this resected once previously. Followed by neurology at [facility]. States that due to this cyst she typically has binocular diplopia which is worse over the last few days. Headache is worse when sitting up. Bifrontal though right greater than left. Some nausea no vomiting. No fevers. She does endorse some light and noise sensitivity. 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 HEENT: None Psych: Depression, Anxiety, Post traumatic stress disorder Musculoskeletal: Fibromyalgia Derm: None - Past Surgical History Past Surgical History: Yes Neuro: Other - Present Medications Home Medications: Ambulatory Orders Medication Instructions Recorded Confirmed Escitalopram [Lexapro] 30 mg PO DAILY 05/27/15 09/04/21 Cetirizine [ZyrTEC] 10 mg PO DAILY #20 tablet 01/27/18 09/04/21 clonazePAM [Clonazepam] 1 mg PO DAILY PRN 01/19/21 09/04/21 traZODone [Desyrel] 50 mg PO HS #10 tablet 01/27/21 09/04/21 - Allergies Allergies/Adverse Reactions: Allergies Allergy/AdvReac Type Severity Reaction Status Date / Time pollen extracts Allergy Rash Verified 03/08/23 13:01 - Social History Does the pt smoke?: No Smoking Status: Never smoker Does the pt drink ETOH?: No Does the pt have substance abuse?: No - Immunizations Immunizations are current?: Yes Immunizations: TDAP >10years/unknown - POLST Patient has POLST: No PD ED PE NORMAL - General General: 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, No acute distress, Well developed/nourished - HEENT HEENT: Atraumatic, Moist mucous membranes, Other (Binocular diplopia in both eyes. 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 Endorses photophobia and noise sensitivity. Does have a history of migraines that typically resolve with ibuprofen and Excedrin headache at home. History is complicated by pre- existing history of a Rathke's cyst as well as a pituitary cyst status post revision at least once. 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 Over the last 4 to 5 years however the diplopia does not resolve with closing of either eye nor with the pinhole test. This is not a new symptom. Patient last had an MRI of her brain in September 2022 which she did show an increase in the size of the pituitary cyst now measuring at 9 mm compared to 7 on the prior. She is being followed closely by [facility] neurology. Over the last several days she finds a headache is worse when sitting up improves when laying down. Her neurological exam is otherwise unremarkable including her cerebellar exam at the bedside. Patient was administered Toradol, Compazine and Benadryl IV as well as a liter of fluids and on reevaluation she reports marked improvement of the headache. 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 to request repeat MRI imaging upcoming as the last one did show a slight increase in size. Usual emergent return precautions were discussed for worsening symptoms. Departure - Departure Disposition: 01 Home, Self Care Clinical Impression: Pituitary cyst, Cyst of Rathke's pouch Headache Qualifiers: Headache type: unspecified Headache chronicity pattern: acute headache Intractability: not intractable Qualified Code(s): R51.9 - Headache, unspecified Condition: Stable Comments: Khushi you are seen today in the emergency department because for the last for 5 days you have been having worsening headache on the right side of your head that did not resolve with your usual medications. Here in the emergency department we did give you some Benadryl, Compazine and Toradol with good resolution of headache. You are given a single dose of Decadron prior to leaving the emergency department which should help prevent the reoccurrence of this headache. With your history of the pituitary cyst and Rathke's cyst is important you follow closely with your neurologist. Your last MRI did show a slight increase in size of the cyst. This could be contributing to your refractory diplopia and I would recommend repeat MRI imaging in the next several weeks. Return immediately to the ER for new or worsening symptoms, uncontrolled headache, vomiting or worsening vision changes. Forms: PCP List
[2023-03-08] MEDS ORDERED: CHERRY SYRUP 10 ML UDC PO ONE (15:03)
[2023-03-08] MEDS ORDERED: DEXAMETHASONE 10 MG/ML VIAL PO STA (15:03)
== END 2023-03-08 15:14 | disposition home or self-care (01) ==
LOC: ED 12:50
DX: R51.9 Headache, unspecified (principal); E23.6 Other disorders of pituitary gland
CPT/HCPCS: 96374; 96375; 99283; A9270; J1200

== ENCOUNTER 2023-04-15 11:09 | Emergency (ER) | payer MEDICAID ==
[2023-04-15] MEDS ORDERED: HYDROcod/ACETAM 5/325 MG TABLET PO STA (14:48)
--- NOTE | 2023-04-15 14:52 | ED Physician Documentation ---
History of Present Illness - Stated complaint Stated Complaint: CHEST PX, SWEATING - Chief complaint Chief Complaint: Cardiac - Additonal information Additional information: 32-year-old female presents emergency department for evaluation of several weeks chest pain that has gone unabated despite the use of methocarbamol and ibuprofen. She does report a history of costochondritis and this initially started out as similar but did not resolve as she would typically expect. Denies cough, fevers. Chest pain is not exertional. No nausea or vomiting. She does not void endorse feeling somewhat weak and sweaty No unilateral leg swelling, no hormone use, no recent travel, no recent surgeries, no history of DVT or cancer. Review of Systems Constitutional: reports: Myalgias. 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 HEENT: None Psych: Depression, Anxiety, Post traumatic stress disorder Musculoskeletal: Fibromyalgia Derm: None - Past Surgical History Past Surgical History: Yes Neuro: Other - Present Medications Home Medications: Ambulatory Orders Medication Instructions Recorded Confirmed Escitalopram [Lexapro] 30 mg PO DAILY 05/27/15 09/04/21 Cetirizine [ZyrTEC] 10 mg PO DAILY #20 tablet 01/27/18 09/04/21 clonazePAM [Clonazepam] 1 mg PO DAILY PRN 01/19/21 09/04/21 traZODone [Desyrel] 50 mg PO HS #10 tablet 01/27/21 09/04/21 Colchicine [Colcrys] 0.6 mg PO DAILY #14 tablet 04/15/23 Ibuprofen [Motrin] 600 mg PO TID #30 tab 04/15/23 Pantoprazole Sodium [Protonix] 40 mg PO DAILY #30 tab 04/15/23 - Allergies Allergies/Adverse Reactions: Allergies Allergy/AdvReac Type Severity Reaction Status Date / Time pollen extracts Allergy Rash Verified 04/15/23 11:11 - Social History Does the pt smoke?: No Smoking Status: Never smoker Does the pt drink ETOH?: No Does the pt have substance abuse?: No - Immunizations Immunizations are current?: Yes Immunizations: TDAP >10years/unknown - POLST Patient has POLST: No PD ED PE NORMAL - General General: 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, No acute distress, Well developed/nourished - HEENT HEENT: Atraumatic - Neck Neck: Supple, no meningeal sign - Cardiac Cardiac: RRR, No murmur - Respiratory Respiratory: No respiratory distress, Clear bilaterally, Other (Chest pain is reproducible with palpation of the chest wall) - Abdomen Abdomen: Normal bowel sounds, Soft - Back Back: No CVA TTP - Derm Derm: Normal color, Warm and dry - Extremities Extremities: No deformity - Neuro Neuro: 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 Eye Opening: Spontaneous Motor: Obeys Commands Verbal: Oriented GCS Score: 15 Results - Vitals Vitals: Vital Signs - 24 hr 04/15/23 04/15/23 04/15/23 11:11 18:37 19:15 Temperature 36.5 C Heart Rate 100 94 99 Respiratory 18 18 18 Rate Blood Pressure 145/90 H 133/98 H 141/91 H O2 Saturation 100 98 100 04/15/23 04/15/23 04/15/23 20:28 21:09 21:56 Temperature Heart Rate 80 88 98 Respiratory 18 18 18 Rate Blood Pressure 139/93 H 144/91 H 133/93 H O2 Saturation 98 98 98 Oxygen O2 Source Room air - EKG (time done) 1118 EKG releavant findings:: EKG personally interpreted by author of this note. Relevant findings are: Rate: Rate (enter#) (100) Rhythm: Sinus tachycardia [place]: Normal Intervals: Normal MS, Prolonged QT Ischemia: Non specific changes Compare to prior EKG: Old EKG unavailable Computer interpretation: Agree with computer - Labs Labs: Laboratory Tests 04/15/23 04/15/23 04/15/23 15:04 15:04 15:04 WBC 11.7 H RBC 4.35 Hgb 12.2 Hct 38.4 MCV 88.3 MCH 28.0 MCHC 31.8 L RDW 11.9 L Plt Count 633 H MPV 9.0 Neut # (Auto) 9.1 H Lymph # (Auto) 1.2 L [place] # (Auto) 1.2 H Eos # (Auto) 0.1 Baso # (Auto) 0.0 Absolute Nucleated RBC 0.00 Nucleated RBC % 0.0 D-Dimer Sodium 135 Potassium 3.4 L Chloride 103 Carbon Dioxide 24 Anion Gap 8.0 BUN 11 Creatinine 0.7 Estimated GFR (MDRD) 98 Glucose 111 H Calcium 9.3 Total Bilirubin 0.3 AST 10 ALT 11 Alkaline Phosphatase 55 Troponin I High Sens 2.3 Total Protein 8.1 Albumin 4.1 Globulin 4.0 Albumin/Globulin Ratio 1.0 Lipase 18 Serum HCG, Qual NEGATIVE 04/15/23 15:18 WBC RBC Hgb Hct MCV MCH MCHC RDW Plt Count MPV Neut # (Auto) Lymph # (Auto) [place] # (Auto) Eos # (Auto) Baso # (Auto) Absolute Nucleated RBC Nucleated RBC % D-Dimer > 1050.0 H Sodium Potassium Chloride Carbon Dioxide Anion Gap BUN Creatinine Estimated GFR (MDRD) Glucose Calcium Total Bilirubin AST ALT Alkaline Phosphatase Troponin I High Sens Total Protein Albumin Globulin Albumin/Globulin Ratio Lipase Serum HCG, Qual - Rads (name of study) cxr Relevant Findings:: Final report received (no acute cardiopulmonary process) CT chest angio Relevant Findings:: Final report received (No definitive pulmonary embolus, suboptimal opacification of pulmonary arteries. Moderate pericardial effusion. Bibasilar atelectasis.) PD Medical Decision Making - ED course Complexity details: reviewed results, re-evaluated patient, considered differential, d/w patient ED course: 32-year-old female presents emergency department for evaluation of at least 3 weeks pleuritic chest pain. She does find that she is able to reproduce the chest pain with palpation but it has not resolved despite the use of Motrin, Tylenol and a muscle relaxer though she historically has a history of costochondritis. Past medical history is most significant for a Rathke's and pituitary cyst for which she is followed by [facility] neurology. Presentation the emergency department she is alert and well-appearing. She appears to be in no acute distress. Room air saturations are 99% and cardiopulmonary auscultation was unremarkable. However her twelve-lead EKG is interpreted by myself was abnormal for 32-year-old woman. It did show peaked P waves and had some T wave inversion in the anterior leads. With this we did obtain screening labs, chest x-ray and a D-dimer. Per my interpretation laboratory work was all essentially normal with the exception of a D-dimer which was greater than the thousand. The chest x-ray showed no acute cardiopulmonary process. Subsequently a CT angiogram was completed which showed a moderate pericardial effusion. We will seen input from CT surgery at a tertiary facility to determine if the patient will need transfer. However while here, she remains alert, without tachycardia or hypotension I spoke on the phone with Dr. ghosh Patternator at [facility]. She feels the patient can safely be discharged home. She needs an echocardiogram completed within 1 to 2 weeks. The EKG does not necessarily meet the criteria for pericarditis however that would be the more common explanation for the pericardial effusion. Given this she recommends starting the patient on ibuprofen 600 mg 3 times a day as well as colchicine each day as as well as with a PPI. Cardiac biomarkers are pending. They will be helpful in helping determine future management and the need for continuing colchicine for several months. I spoke with the patient and her mom at the bedside. They are comfortable with discharge home. They understand that she will need an urgent referral to cardiology as well as an echocardiogram to be completed sometime in the next week or 2. Appropriate prescriptions were sent to the patient's preferred pharmacy. The usual emergent return precautions were discussed for worsening symptoms. Departure - Departure Disposition: 01 Home, Self Care Clinical Impression: Abnormal EKG, Pericardial effusion Chest pain Qualifiers: Chest pain type: unspecified Qualified Code(s): R07.9 - Chest pain, unspecified Condition: Stable Instructions: Understanding Pericardial Effusion Follow-Up: Yamileth Yoon ARNP [Provider Admit Priv/Credential] - Prescriptions: Colchicine [Colcrys] 0.6 mg PO DAILY #14 tablet Ibuprofen [Motrin] 600 mg PO TID #30 tab Pantoprazole Sodium [Protonix] 40 mg PO DAILY #30 tab Comments: Suzette you are seen today in the emergency department because for several weeks you have had some chest pain. As discussed at the bedside the CT imaging suggests a moderate size pericardial effusion. This can often be due to a condition called pericarditis. I have spoken with the social worker school at [facility]. She recommends that you be discharged with NSAID medication which is the appropriate treatment for pericarditis and an early pericardial effusion. Please fill the prescription for the ibuprofen and take it 3 times a day until advised to stop by your social worker school. The colchicine has been prescribed for 2 months though this often needs to be taken for about 3 months in the setting of pericarditis. While you are on these NSAID medications also please take the Protonix and acid pill to help protect your stomach. Sometimes colchicine can cause diarrhea. If you develop diarrhea stop the colchicine. It is critical that you follow very closely with a social worker school. You should be referred urgently for an echocardiogram. Return immediately to the ER if you develop any new or worsening symptoms, have fainting episodes sudden severe chest pain or severe shortness of breath. Forms: PCP List
[2023-04-15 15:14] LABS: BASOPHILS % (AUTO) 0.3 %; EOSINOPHILS # (AUTO) 0.1 10^3/uL (0.0-0.7); EOSINOPHILS % (AUTO) 0.7 %; HCT - HEMATOCRIT 38.4 % (37.0-47.0); HGB - HEMOGLOBIN 12.2 g/dL (12.0-16.0); LYMPHOCYTES # (AUTO) 1.2 10^3/uL (1.5-3.5); LYMPHOCYTES % (AUTO) 10.6 %; MEAN CORPUSCULAR HGB CONC 31.8 g/dL (32.0-36.0); MEAN CORPUSCULAR VOLUME 88.3 fL (81.0-99.0); MONOCYTES # (AUTO) 1.2 10^3/uL (0.0-1.0); MONOCYTES % (AUTO) 9.9 %; NEUTROPHILS # (AUTO) 9.1 10^3/uL (1.5-6.6); NEUTROPHILS % (AUTO) 77.7 %; PLT - PLATELET COUNT 633 10^3/uL (130-450); RED BLOOD COUNT 4.35 10^6/uL (4.20-5.40); RED CELL DISTRIBUTION WIDTH 11.9 % (12.0-15.0); WHITE BLOOD COUNT 11.7 x10^3/uL (4.8-10.8)
--- NOTE | 2023-04-15 15:15 | XRAY Report ---
PROCEDURE: Chest 1 View X-Ray INDICATIONS: chest pain TECHNIQUE: One view of the chest was acquired. COMPARISON: 07/06/2020. FINDINGS: Surgical changes and devices: None. Lungs and pleura: No pleural effusions or pneumothorax. Lungs are clear. Mediastinum: Mediastinal contours appear normal. Heart size is normal. Bones and chest wall: No suspicious bony lesions. Overlying soft tissues appear unremarkable. IMPRESSION: No acute cardiopulmonary process. Reviewed by: Gordon Viera MD on 04/15/2023 3:13 PM PST Approved by: Gordon Viera MD on 04/15/2023 3:13 PM PST Station ID: [id number]
[2023-04-15 15:41] LABS: ALBUMIN 4.1 g/dL (3.2-5.5); BILIRUBIN,TOTAL 0.3 mg/dL (0.2-1.0); CALCIUM 9.3 mg/dL (8.5-10.3); CREATININE 0.7 mg/dL (0.6-1.3); POTASSIUM 3.4 mmol/L (3.5-4.5); TOTAL PROTEIN 8.1 g/dL (6.4-8.9)
[2023-04-15 15:45] LABS: TROPONIN I HIGH SENSITIVITY 2.3 ng/L (2.3-14.8)
[2023-04-15 16:38] LABS: HCG,QUALITATIVE BLOOD NEGATIVE
--- NOTE | 2023-04-15 18:39 | CT Report ---
PROCEDURE: ANGIO CHEST W/WO INDICATIONS: r/o PE CONTRAST: 80mL Omni 300 TECHNIQUE: After the administration of intravenous contrast, 2 mm axial images were acquired from the pulmonary apices to the posterior costophrenic angles during the arterial phase. In addition, 1 mm lung kernel and 5 mm soft tissue kernel reconstructions were performed. 3-dimensional coronal oblique maximum int ensity projection (MIP) reformats, 8 mm axial MIP, and 5 mm coronal and sagittal MPR reformats were t hen performed through the thorax. For radiation dose reduction, the following was used: automated exp osure control, adjustment of mA and/or kV according to patient size. COMPARISON: None. FINDINGS: Image quality: Suboptimal opacification of pulmonary arteries.. Large vessels: No filling defects within the opacified pulmonary arteries, accounting for motion and contrast timing. No evidence of acute aortic syndrome or aortic aneurysm. Lungs and pleura: No consolidation. No pleural effusions. No pneumothorax. No suspicious pulmonary n odules which require follow up. Mediastinum: Heart size is normal. Moderate pericardial effusion. No large vessel abnormality. No med iastinal adenopathy by size criteria. Chest wall and lower neck: Thyroid is unremarkable. No axillary or supraclavicular adenopathy by size . Bones: No aggressive osseous abnormality. Upper Abdomen: Unremarkable. IMPRESSION: 1. Suboptimal opacification of pulmonary arteries. No definitive pulmonary embolus. 2. Moderate pericardial effusion. 3. Bibasilar atelectasis. Reviewed by: Liza Gong MD on 04/15/2023 6:38 PM PST Approved by: Liza Gong MD on 04/15/2023 6:38 PM PST Station ID: [id number]
[2023-04-15 20:39] VITALS: O2SAT 98
[2023-04-15 23:03] VITALS: BP 137/94
[2023-04-16] MEDS ORDERED: iohexoL-300 100 ML VIAL IVP ONE (01:32)
== END 2023-04-15 22:53 | disposition home or self-care (01) ==
LOC: ED 11:09
DX: R07.9 Chest pain, unspecified (principal); R94.31 Abnormal electrocardiogram [ECG] [EKG]; I31.39 Other pericardial effusion (noninflammatory)
CPT/HCPCS: 36415; 71045; 71275; 80053; 83690; 84443; 84484; 84703; 85025; 85379; 85651; 86038; 86140; 93005; 99284; A9270; Q9967

== ENCOUNTER 2023-04-15 14:48 | Outpatient (CLI) | payer MEDICAID ==
[2023-04-20 16:08] LABS: ANTINUCLEAR ANTIBODIES IFA Negative (.)
== END 2023-04-15 23:59 | disposition home or self-care (01) ==
LOC: LAB 14:48
PROVIDERS: ATTEND Physician Assistant Medical
DX: I31.39 Other pericardial effusion (noninflammatory) (principal)
CPT/HCPCS: 36415; 84443; 86038

== ENCOUNTER 2023-04-21 00:10 | Emergency (ER) | payer MEDICAID ==
[2023-04-21 00:34] LABS: BASOPHILS # (AUTO) 0.1 10^3/uL (0.0-0.1); BASOPHILS % (AUTO) 0.6 %; EOSINOPHILS # (AUTO) 0.3 10^3/uL (0.0-0.7); EOSINOPHILS % (AUTO) 4.3 %; HCT - HEMATOCRIT 39.2 % (37.0-47.0); HGB - HEMOGLOBIN 11.7 g/dL (12.0-16.0); LYMPHOCYTES # (AUTO) 3.2 10^3/uL (1.5-3.5); LYMPHOCYTES % (AUTO) 40.9 %; MEAN CORPUSCULAR HEMOGLOBIN 27.6 pg (27.0-31.0); MEAN CORPUSCULAR HGB CONC 29.8 g/dL (32.0-36.0); MEAN CORPUSCULAR VOLUME 92.5 fL (81.0-99.0); MEAN PLATELET VOLUME 8.9 fL (7.9-10.8); MONOCYTES # (AUTO) 0.5 10^3/uL (0.0-1.0); MONOCYTES % (AUTO) 6.9 %; NEUTROPHILS # (AUTO) 3.6 10^3/uL (1.5-6.6); NEUTROPHILS % (AUTO) 46.7 %; PLT - PLATELET COUNT 574 10^3/uL (130-450); RED BLOOD COUNT 4.24 10^6/uL (4.20-5.40); RED CELL DISTRIBUTION WIDTH 11.9 % (12.0-15.0); WHITE BLOOD COUNT 7.7 x10^3/uL (4.8-10.8)
[2023-04-21 00:52] LABS: ALBUMIN 3.8 g/dL (3.2-5.5); ALBUMIN/GLOBULIN RATIO 1.2 (1.0-2.2); BILIRUBIN,TOTAL 0.2 mg/dL (0.2-1.0); CALCIUM 8.7 mg/dL (8.5-10.3); POTASSIUM 3.7 mmol/L (3.5-4.5); TOTAL PROTEIN 7.1 g/dL (6.4-8.9)
--- NOTE | 2023-04-21 00:53 | XRAY Report ---
PROCEDURE: Chest 1 View X-Ray INDICATIONS: Chest pain TECHNIQUE: One view of the chest was acquired. COMPARISON: CT chest 04/15/2023 FINDINGS: Surgical changes and devices: None. Lungs and pleura: No pleural effusions or pneumothorax. Lungs are clear. Lungs are hyperexpanded. Mediastinum: Mediastinal contours appear normal. Heart size is normal. Bones and chest wall: No suspicious bony lesions. Overlying soft tissues appear unremarkable. IMPRESSION: No acute cardiopulmonary process. Reviewed by: Lina Delgadillo MD on 04/21/2023 12:52 AM PST Approved by: Lina Delgadillo MD on 04/21/2023 12:52 AM [facility] Station ID: [id number]
[2023-04-21 00:55] LABS: TROPONIN I HIGH SENSITIVITY 2.3 ng/L (2.3-14.8)
--- NOTE | 2023-04-21 01:01 | ED Physician Documentation ---
History of Present Illness - Stated complaint Stated Complaint: CHEST PX/ HIGH BP/ BODY NUMBNESS - Chief complaint Chief Complaint: General - History obtained from History obtained from: Patient - Additonal information Additional information: The patient comes to the emergency department chief complaint of an episode sharp chest pains and whole body numbness that awakened her from sleep. The patient states that she has been having sharp chest pains at night that awaken her from sleep for the last few months. She was recently diagnosed with a pericardial effusion and is scheduled to see cardiology tomorrow for this. She states that she began to breathe fast when she woke up and then realized that her whole body had gone numb. The patient denies any abdominal pain, nausea, or vomiting. No facial sweating. The patient states that she has a history of fibromyalgia but no diabetes or high blood pressure. 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 HEENT: None Psych: Depression, Anxiety, Post traumatic stress disorder Musculoskeletal: Fibromyalgia Derm: None - Past Surgical History Past Surgical History: Yes Neuro: Other - Present Medications Home Medications: Ambulatory Orders Medication Instructions Recorded Confirmed Escitalopram [Lexapro] 30 mg PO DAILY 05/27/15 09/04/21 Cetirizine [ZyrTEC] 10 mg PO DAILY #20 tablet 01/27/18 09/04/21 clonazePAM [Clonazepam] 1 mg PO DAILY PRN 01/19/21 09/04/21 traZODone [Desyrel] 50 mg PO HS #10 tablet 01/27/21 09/04/21 Colchicine [Colcrys] 0.6 mg PO DAILY #14 tablet 04/15/23 Ibuprofen [Motrin] 600 mg PO TID #30 tab 04/15/23 Pantoprazole Sodium [Protonix] 40 mg PO DAILY #30 tab 04/15/23 - Allergies Allergies/Adverse Reactions: Allergies Allergy/AdvReac Type Severity Reaction Status Date / Time pollen extracts Allergy Rash Verified 04/21/23 00:13 - Social History Does the pt smoke?: No Smoking Status: Never smoker Does the pt drink ETOH?: No Does the pt have substance abuse?: No - Immunizations Immunizations are current?: Yes Immunizations: TDAP >10years/unknown - POLST Patient has POLST: No PD ED PE NORMAL - Vitals Vital signs reviewed: Yes - General General: 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, No acute distress, Well developed/nourished - HEENT HEENT: Atraumatic, PERRL, EOMI, Moist mucous membranes - Neck Neck: Supple, no meningeal sign - Cardiac Cardiac: RRR, No murmur - Respiratory Respiratory: No respiratory distress, Clear bilaterally - Abdomen Abdomen: Soft, Non tender, Non distended - Derm Derm: Normal color, Warm and dry, No rash - Extremities Extremities: No deformity, No edema, No calf tenderness / cord - Neuro Neuro: 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 - Psych Psych: Normal mood, Normal affect Results - Vitals Vitals: Vital Signs - 24 hr 04/21/23 04/21/23 00:14 01:49 Temperature 36.5 C 37 C Heart Rate 88 83 Respiratory 18 20 Rate Blood Pressure 170/100 H 134/76 H O2 Saturation 99 100 Oxygen O2 Source Room air - EKG (time done) 0022 EKG releavant findings:: EKG personally interpreted by author of this note. Relevant findings are: Rate: Rate (enter#) (62) Rhythm: NSR [place]: Normal Intervals: Normal [place] QRS: Normal Ischemia: Normal ST segments Compare to prior EKG: Old EKG unavailable Computer interpretation: Agree with computer - Labs Labs: Laboratory Tests 04/21/23 04/21/23 00:28 00:28 WBC 7.7 RBC 4.24 Hgb 11.7 L Hct 39.2 MCV 92.5 MCH 27.6 MCHC 29.8 L RDW 11.9 L Plt Count 574 H MPV 8.9 Neut # (Auto) 3.6 Lymph # (Auto) 3.2 Wilcox # (Auto) 0.5 Eos # (Auto) 0.3 Baso # (Auto) 0.1 Absolute Nucleated RBC 0.00 Nucleated RBC % 0.0 Sodium 135 Potassium 3.7 Chloride 105 Carbon Dioxide 24 Anion Gap 6.0 BUN 18 Creatinine 1.0 Estimated GFR (MDRD) 65 L Glucose 104 Calcium 8.7 Total Bilirubin 0.2 AST 12 ALT 15 Alkaline Phosphatase 46 Troponin I High Sens 2.3 Total Protein 7.1 Albumin 3.8 Globulin 3.3 Albumin/Globulin Ratio 1.2 Lipase 75 - Rads (name of study) chest XR Relevant Findings:: Final report received, See rad report PD Medical Decision Making - ED course Complexity details: reviewed old records, reviewed results, re-evaluated patient, considered differential, d/w patient, d/w family ED course: The patient had normal vital signs other than intermittent hypertension in the emergency department. She was not tachycardic and she was not hypotensive. Furthermore, her physical exam was normal. The patient was not in distress, her lungs were clear, and she did not have any muffling of heart sounds or pulses paradoxus. Her symptoms of nocturnal, stabbing chest pain were long-standing and recurrent. The patient was worked up with labs, EKG, and chest x-ray, all of which were unremarkable. I spoke with the patient and her mother, who accompanied her, and advised them at length of the reassuring nature of all of the above. The patient's demeanor had immediately changed when I had initially mentioned that her vital signs and physical exam were reassuring earlier in the visit. The patient and her mother were both visibly disgruntled at my attempts to reassure them of the plentitude of evidence that the patient is not in cardiac tamponade. The mother asked if I had rechecked the D-dimer and then stated that if I could not explain exactly why the patient had whole body numbness, I could not say that she did not have an emergency. I discussed with the mother and patient that the numbness is nonspecific and does not indicate a stroke, given the global nature of the sensation. I again reiterated that in the face of the multitude of reassuring factors, we can be confident that the patient is not currently having an emergent condition. The patient refused to accept any reassurance and stated that if she goes to sleep, she cannot be sure that she will wake up. She declined any medication to help with anxiety. At this point, I asked both the patient and her mother whether they had any further medical questions and they stated they did not, so I excused myself from further conversation. The patient has been assured that if she has further concerns or desire for a reevaluation, she is always welcome to return to the emergency department. However, she has an appointment with cardiology tomorrow and I have advised her that this is the best next step in evaluating her pericardial effusion further. Departure - Departure Disposition: 01 Home, Self Care Clinical Impression: Paresthesia Chest pain Qualifiers: Chest pain type: unspecified Qualified Code(s): R07.9 - Chest pain, unspecified Condition: Stable Instructions: ED Chest Pain Atypical Unkn Cause Comments: Your vital signs look very good and your heart and lung exam are normal. Your old records have been reviewed, and it appears you had a moderately sized pericardial effusion. There is no evidence of enlargement of your heart on x- ray today. Your EKG is normal. At this point in time, there is no evidence of an emergent or acute condition involving your heart or any other the vital structures of your chest. For now, you should continue your plan to see your electrode cleaner tomorrow. As far as the numbness of your body, it is not clear exactly what caused that. It could be hyperventilation or an atypical anxiety attack triggered by the pains. The distribution of numbness is not consistent with stroke, and heart attacks generally do not cause numbness. Please follow- up with your primary doctor about this as well, should you have recurrent episodes like this. Forms: PCP List Discharge Date/Time: 04/21/23 01:49
[2023-04-21 01:54] VITALS: BP 134/76; O2SAT 100
== END 2023-04-21 01:49 | disposition home or self-care (01) ==
LOC: ED 00:10
DX: R07.9 Chest pain, unspecified (principal); R20.2 Paresthesia of skin; M79.7 Fibromyalgia; Z79.899 Other long term (current) drug therapy
CPT/HCPCS: 36415; 80053; 83690; 84484; 85025; 93005; 99283; 99284

== ENCOUNTER 2023-07-26 10:35 | Outpatient (CLI) | payer MEDICAID | END 2023-07-26 23:59 | disposition critical access hospital (66) | LOC: EMS 10:35 | DX: M25.511 Pain in right shoulder (principal); W10.9XXA Fall (on) (from) unspecified stairs and steps, initial encounter; Y92.008 Other place in unspecified non-institutional (private) residence as the place of occurrence of the external cause | CPT/HCPCS: A0425; A0427; A0999 ==

== ENCOUNTER 2023-07-26 10:37 | Emergency (ER) | payer MEDICAID ==
--- NOTE | 2023-07-26 10:54 | ED Physician Documentation ---
PD HPI Fall - Stated complaint Stated Complaint: GLF - Chief complaint Chief Complaint: Ext Problem - History obtained from History obtained from: Patient, EMS - History of Present Illness Mechanism of injury: Lost balance Fall distance: Standing position (she was walking down stairs to get laundry, with her dog in arms, lost balance on steps and fell forward, striking right s houlder as she tried to protect the animal in her arms. Pain at shoulder and clavicle. No head impact. Some pain right lateral neck.) Where injury occurred: Home Timing - onset: Today Injury(ies) location: Neck (just lateral right. none posterior neck.), Right Upper Extremity (clavicle and shoulder area.). No: Head, Chest, Abdomen, Back Associated symptoms: No: LOC, AMS, Weakness, Paresthesias Worsens with: Movement Contributing factors: No: Anticoagulated, Intoxicated Similar symptoms before: Has not had sx before (broken collarbone when about 9 years old. 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 HEENT: None Psych: Depression, Anxiety, Post traumatic stress disorder Musculoskeletal: Fibromyalgia Derm: None - Past Surgical History Past Surgical History: Yes Neuro: Other - Present Medications Home Medications: Ambulatory Orders Medication Instructions Recorded Confirmed Escitalopram [Lexapro] 30 mg PO DAILY 05/27/15 07/26/23 Cetirizine [ZyrTEC] 10 mg PO DAILY #20 tablet 01/27/18 07/26/23 Colchicine [Colcrys] 0.6 mg PO DAILY #14 tablet 04/15/23 07/26/23 Azelastine HCl 1 inh INH PRN PRN 07/26/23 07/26/23 HYDROcod/ACETAM 5/325 [[place] 5/325] 1 ea PO Q6H PRN #18 tablet 07/26/23 - Allergies Allergies/Adverse Reactions: Allergies Allergy/AdvReac Type Severity Reaction Status Date / Time pollen extracts Allergy Rash Verified 04/21/23 00:13 - Social History Does the pt smoke?: No Smoking Status: Never smoker Does the pt drink ETOH?: No Does the pt have substance abuse?: No - Immunizations Immunizations are current?: Yes Immunizations: TDAP >10years/unknown - POLST Patient has POLST: No PD ED PE NORMAL - Vitals Vital signs reviewed: Yes - General General: 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, Well developed/nourished, Other (appears in pain. Guarding movement of right shoulder. ) - HEENT HEENT: Atraumatic - Neck Neck: Supple, no meningeal sign, No bony TTP (some right SCM area muscle. ), No adenopathy - Cardiac Cardiac: RRR, No murmur - Respiratory Respiratory: Clear bilaterally, Other (no chestwall tenderness. ) - Abdomen Abdomen: Soft, Non tender - Derm Derm: Normal color, Warm and dry - Extremities Extremities: Other (right upper humerus and mid to distal clavicle areas are tender. Most notable is the clavicle with palpable small step off. No skin tenting nor redness. ) - Neuro Neuro: 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, No motor deficit, No sensory deficit, Normal speech Results - Vitals Vitals: Vital Signs - 24 hr 07/26/23 07/26/23 07/26/23 10:42 12:50 14:00 Temperature 36.4 C L Heart Rate 70 74 82 Respiratory 14 18 16 Rate Blood Pressure 136/94 H 139/63 H 129/84 H O2 Saturation 100 100 98 Oxygen O2 Source Room air - Rads (name of study) right shoudler Relevant Findings:: Prelim report reviewed, EMP independent interpretation of test (clavicle shaft fracture, mildly displaced. Clearly fracture new, as not seen on recent CXR Apr 2023. ) PD Medical Decision Making - ED course Complexity details: reviewed results (clavicle shaft fracture. Humeral head okay. ), re-evaluated patient (given IV dialudid as having a lot of pain in shoulder and calvicle area. ), considered differential (fall with local right shoulder/calvicle injury. Does not appear concussed. No head impact. Neck mild tender right lateral only. ), d/w patient Departure - Departure Disposition: 01 Home, Self Care Clinical Impression: Fall down stairs Qualifiers: Encounter type: initial encounter Qualified Code(s): W10.8XXA - Fall (on) (from) other stairs and steps, initial encounter Clavicle fracture Qualifiers: Encounter type: initial encounter Clavicle location: shaft Fracture type: closed Fracture alignment: displaced Laterality: right Qualified Code(s): S42.021A - Displaced fracture of shaft of right clavicle, initial encounter for closed fracture Condition: Stable Record reviewed to determine appropriate education?: Yes Instructions: ED Fx Clavicle Follow-Up: Yamileth Yoon ARNP [Primary Care Provider] - [facility] [Provider Group] Prescriptions: HYDROcod/ACETAM 5/325 [[place] 5/325] 1 ea PO Q6H PRN #18 tablet PRN Reason: Pain Comments: Your x-ray does show a fracture of the collarbone/clavicle. It is minimally displaced. We typically treat these with a sling and decrease motion through the shoulder to help with the pain and discomfort. The worst pain should be the first 2 or 3 days with the initial injury and inflammation in nerve ending irritation. That should decrease reasonably but there will still be movement of the broken ends until it starts sticking together. That typically occurs around a week and a half. Able to take however about 4 weeks to firm up enough. Particularly avoid overhead reaching, push pull, lifting with that arm for 4 weeks. Otherwise light activity is okay as tolerated. It may be prudent to follow-up with orthopedics in about 1 and half to 2 weeks to ensure it is healing adequately. Continue with the anti-inflammatories you currently take. Add Tylenol 500 to 650 mg 4 times daily for the next several days to week for pain as well. To that add hydrocodone/acetaminophen every 6-8 hours if needed for worse pain. This would be most likely needed just in the short-term. I sent your prescriptions to your preferred pharmacy. I am prescribing a short course of narcotic pain medication for you. These are potentially dangerous and addictive medications that should be used carefully. These medications may constipate you. Take an [id number] stool softener such as docusate twice daily with plenty of water while taking these medications. If you go 24 hours without a bowel movement, take [id number] MiraLAX, per package instructions. Do not drink or drive while taking these medications. If you received narcotic or sedating medications while in the emergency department do not drive for 24 hours. Store this medication in a safe, secure place and out of reach of children. It is a violation of federal law to give or sell this medication to another person or to use in a manner other than prescribed. The ED will not refill narcotic prescriptions, including prescriptions lost or stolen. You can dispose of unwanted medications at the [facility] office or at several pharmacies such as [facility]. Forms: PCP List Discharge Date/Time: 07/26/23 14:03
[2023-07-26] MEDS: HYDROmorphone 1 MG/ML CARPUJECT IVP STA ×2 (12:05→13:02)
--- NOTE | 2023-07-26 13:02 | XRAY Report ---
PROCEDURE: Shoulder 2+V RT INDICATIONS: fall to shoulder; pain TECHNIQUE: 3 views of the shoulder were acquired. COMPARISON: None. FINDINGS: Bones: No displaced fracture. Possible mild deformity of the right mid clavicle Soft tissues: No suspicious calcifications. IMPRESSION: Possible mild deformity of the mid clavicle. Correlate with location and any prior injury. If there i s high concern for occult injury, consider repeat radiography or cross-sectional imaging. Reviewed by: John Augustin MD on 07/26/2023 1:00 PM PST Approved by: John Augustin MD on 07/26/2023 1:00 PM PST Station ID: [id number]
[2023-07-26 14:16] VITALS: BP 129/84; O2SAT 98
== END 2023-07-26 14:03 | disposition home or self-care (01) ==
LOC: EDUNIT# → ED 10:37
DX: S42.021A Displaced fracture of shaft of right clavicle, initial encounter for closed fracture (principal); W10.9XXA Fall (on) (from) unspecified stairs and steps, initial encounter; Z79.899 Other long term (current) drug therapy
CPT/HCPCS: 73030; 96374; 96376; 99283; J1170

== ENCOUNTER 2023-07-28 08:00 | Outpatient (CLI) | payer MEDICAID ==
--- NOTE | 2023-07-28 12:34 | XRAY Report ---
PROCEDURE: Clavicle RT INDICATIONS: RIGHT CLAVICLE INJURY TECHNIQUE: 2 views of the clavicle were acquired. COMPARISON: 07/26/2023 FINDINGS: Bones: Midshaft mildly displaced clavicle fracture again seen. Soft tissues: No suspicious calcifications. IMPRESSION: Midshaft mildly displaced clavicle fracture. Reviewed by: John Augustin MD on 07/28/2023 12:33 PM PST Approved by: John Augustin MD on 07/28/2023 12:33 PM PST Station ID: [id number]
== END 2023-08-26 23:59 | disposition home or self-care (01) ==
LOC: DI.WOS 08:00
PROVIDERS: ATTEND Orthopaedic Surgery
DX: S42.021D Displaced fracture of shaft of right clavicle, subsequent encounter for fracture with routine healing (principal)

== ENCOUNTER 2023-08-02 16:48 | Emergency (ER) | payer MEDICAID ==
--- NOTE | 2023-08-02 17:46 | ED Physician Documentation ---
History of Present Illness - Stated complaint Stated Complaint: R LEG SWELLING/BRUISING - Chief complaint Chief Complaint: Trauma Ext - History obtained from History obtained from: Patient, Family - Additonal information Additional information: Patient is a 32-year-old female who presents to the emergency department bruising and swelling to the right lower extremity. She states that she was seen here about a week ago for a fall. Diagnosed with a clavicle fracture. Initially did not have any pain bruising or swelling in the leg but has gradually developed this over the past few days. She states the pain is like a 3 out of 10. Feels like a deep bruise. No numbness or tingling. No new injuries. She states that originally she fell down the stairs. Not on blood thinners. No posterior calf pain. 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 HEENT: None Psych: Depression, Anxiety, Post traumatic stress disorder Musculoskeletal: Fibromyalgia Derm: None - Past Surgical History Past Surgical History: Yes Neuro: Other - Present Medications Home Medications: Ambulatory Orders Medication Instructions Recorded Confirmed Escitalopram [Lexapro] 30 mg PO DAILY 05/27/15 08/02/23 Cetirizine [ZyrTEC] 10 mg PO DAILY #20 tablet 01/27/18 08/02/23 Colchicine [Colcrys] 0.6 mg PO DAILY #14 tablet 04/15/23 08/02/23 Azelastine HCl 1 inh INH PRN PRN 07/26/23 08/02/23 - Allergies Allergies/Adverse Reactions: Allergies Allergy/AdvReac Type Severity Reaction Status Date / Time pollen extracts Allergy Rash Verified 08/02/23 17:10 - Social History Does the pt smoke?: No Smoking Status: Never smoker Does the pt drink ETOH?: No Does the pt have substance abuse?: No - Immunizations Immunizations are current?: Yes Immunizations: TDAP >10years/unknown - POLST Patient has POLST: No PD ED PE NORMAL - Vitals Vital signs reviewed: Yes - General General: 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, No acute distress - HEENT HEENT: Moist mucous membranes - Derm Derm: Warm and dry - Extremities Extremities: Other (Patient with ecchymosis over the tibialis anterior muscle on the right lower leg. There is mild tenderness over the muscle. Compartments are soft. No posterior calf tenderness or cord. Neurovascular intact. No bony tenderness over the right lower extremity, foot or ankle.) - Neuro Neuro: 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 - Psych Psych: Normal mood, Normal affect Results - Vitals Vitals: Vital Signs - 24 hr 08/02/23 08/02/23 17:04 19:16 Temperature 36.4 C L 37.1 C Heart Rate 77 71 Respiratory 16 14 Rate Blood Pressure 127/86 H 121/64 O2 Saturation 98 100 Oxygen O2 Source Room air - Rads (name of study) Right tib-fib x-ray Relevant Findings:: Final report received, See rad report PD Medical Decision Making - ED course Complexity details: reviewed results, re-evaluated patient, considered differential, d/w patient, d/w family ED course: 32-year-old female with what appears to be a deep contusion to the right tibialis anterior. Appears to have ecchymosis that is now coming to the surface post injury. No acute findings on x-ray. Ambulating well in the emergency department. No noticeable limp. Declines anything for pain for home. Patient is well-appearing, nontoxic. Afebrile. No evidence of DVT. No posterior calf tenderness or pain. No posterior calf swelling. Patient counseled regarding signs and symptoms for which I believe and urgent re-evaluation would be necessary. Patient with good understanding of and agreement to plan and is comfortable going home at this time This document was made in part using voice recognition software. While efforts are made to proofread this document, sound alike and grammatical errors may occur. Departure - Departure Disposition: 01 Home, Self Care Clinical Impression: Ecchymosis Condition: Good Instructions: ED Contusion Soft Tissue Follow-Up: Yamileth Yoon ARNP [Primary Care Provider] - Comments: Your x-rays do not show any acute abnormalities today. Please follow-up with your doctor as needed for further care. As we discussed the bruising is not uncommon to occur several days later. This should resolve over the next week. Please return if you worsen. Forms: PCP List Discharge Date/Time: 08/02/23 19:15
[2023-08-02 19:19] VITALS: BP 121/64; O2SAT 100
--- NOTE | 2023-08-02 19:20 | XRAY Report ---
PROCEDURE: Tib/Fib RT INDICATIONS: fall, pain TECHNIQUE: 2 views of the tibia and fibula were acquired. COMPARISON: None. FINDINGS: Bones: No displaced fracture or dislocation. Soft tissues: No suspicious calcifications. IMPRESSION: No acute radiographic abnormality. If there is high concern for occult injury, consider repeat radiog rony or cross-sectional imaging. Reviewed by: John Augustin MD on 08/02/2023 7:18 PM PST Approved by: John Augustin MD on 08/02/2023 7:18 PM PST Station ID: [id number]
== END 2023-08-02 19:15 | disposition home or self-care (01) ==
LOC: ED 16:48
DX: S80.11XA Contusion of right lower leg, initial encounter (principal); W10.9XXA Fall (on) (from) unspecified stairs and steps, initial encounter; Z79.899 Other long term (current) drug therapy
CPT/HCPCS: 99282; 99283

== ENCOUNTER 2023-10-01 16:03 | Emergency (ER) | payer MEDICAID ==
[2023-10-01 16:18] VITALS: BP 132/80
--- NOTE | 2023-10-01 16:24 | ED Physician Documentation ---
History of Present Illness - Stated complaint Stated Complaint: DOG BITE - Chief complaint Chief Complaint: Laceration - History obtained from History obtained from: Patient - History of Present Illness Timing: Today Pain level max: 0 Pain level now: 0 - Additonal information Additional information: 33-year-old female presents to the emergency department with a dog bite to the right ear today. This was [place] on the ear. Unknown last tetanus shot. The dog's vaccinations including rabies are up-to-date. No other injuries. Nothing makes it better or worse. Patient is not anticoagulated. 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: Other : None HEENT: None Psych: Depression, Anxiety, Post traumatic stress disorder Musculoskeletal: Fibromyalgia Derm: None - Past Surgical History Past Surgical History: Yes Neuro: Other - Present Medications Home Medications: Ambulatory Orders Medication Instructions Recorded Confirmed Escitalopram [Lexapro] 30 mg PO DAILY 05/27/15 08/02/23 Cetirizine [ZyrTEC] 10 mg PO DAILY #20 tablet 01/27/18 08/02/23 Colchicine [Colcrys] 0.6 mg PO DAILY #14 tablet 04/15/23 08/02/23 Azelastine HCl 1 inh INH PRN PRN 07/26/23 08/02/23 Amox/Clav 875/125 [Augmentin] 1 tab PO Q12H #14 tablet 10/01/23 - Allergies Allergies/Adverse Reactions: Allergies Allergy/AdvReac Type Severity Reaction Status Date / Time pollen extracts Allergy Rash Verified 10/01/23 16:12 - Social History Does the pt smoke?: No Smoking Status: Never smoker Does the pt drink ETOH?: No Does the pt have substance abuse?: No - Immunizations Immunizations are current?: Yes Immunizations: TDAP >10years/unknown - POLST Patient has POLST: No PD ED PE NORMAL - Vitals Vital signs reviewed: Yes - General General: 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, No acute distress - HEENT HEENT: Moist mucous membranes, Other (R ear - 1cm linear subcutaneous laceration posterior pinna. not through and through.) - Neck Neck: Supple, no meningeal sign - Cardiac Cardiac: RRR, Strong equal pulses - Respiratory Respiratory: No respiratory distress, Clear bilaterally - Abdomen Abdomen: Soft, Non tender, Non distended - Derm Derm: Warm and dry - Neuro Neuro: 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 - Psych Psych: Normal mood, Normal affect Results - Vitals Vitals: Vital Signs - 24 hr 10/01/23 10/01/23 16:06 16:14 Temperature 36.9 C Heart Rate 84 Respiratory 16 Rate Blood Pressure 132/80 H O2 Saturation 100 Oxygen O2 Source Room air Procedures - Laceration (location) R ear Length in cm: 1 Wound type: Linear, Clean Neurovascular status: Sensory intact, Motor intact, Vascular intact Wound preparation: Irrigated copiously NS, Wound explored, To the base Skin layer closure: Dermabond Other: Patient tolerated well, No complications, Neurovascular intact, Dressing applied, Tetanus booster given (tdap) PD Medical Decision Making - ED course Complexity details: considered differential, d/w patient ED course: 33-year-old female with a small laceration to the posterior pinna of the right ear. Well-approximated. Repaired with Dermabond. Will place on Augmentin for the dog bite. Low-tension area. No other acute injuries. Tdap given. Patient will follow-up with her doctor for wound check. Patient counseled regarding signs and symptoms for which I believe and urgent re-evaluation would be necessary. Patient with good understanding of and agreement to plan and is comfortable going home at this time This document was made in part using voice recognition software. While efforts are made to proofread this document, sound alike and grammatical errors may occur. Departure - Departure Disposition: 01 Home, Self Care Clinical Impression: Dog bite Qualifiers: Encounter type: initial encounter Qualified Code(s): W54.0XXA - Bitten by dog, initial encounter Laceration of ear Qualifiers: Encounter type: initial encounter Laterality: right Qualified Code(s): S01.311A - Laceration without foreign body of right ear, initial encounter Condition: Good Instructions: ED Bite Dog, ED Laceration Facial Skin Glue Follow-Up: Yamileth Yoon ARNP [Primary Care Provider] - Within 1 week Prescriptions: Amox/Clav 875/125 [Augmentin] 1 tab PO Q12H #14 tablet Comments: Your prescription was sent to [facility] in [place]. Please take all antibiotics until gone. Please follow-up with your doctor in 1 week for a wound check. The glue will fall off on its own. Please do not apply any ointment to the glue as this may dissolve the glue. Please return if you notice redness, swelling or drainage from the ear. You are also given a tetanus shot today. Forms: PCP List
[2023-10-01] MEDS: AMOX/CLAV 875 MG/125 MG TABLET PO STA (16:29)
[2023-10-01] MEDS: TETANUS/DIPHTHERIA/PERTUSSIS 0.5 ML SYRINGE IM ONE (16:30)
[2023-10-01 16:39] VITALS: O2SAT 3
== END 2023-10-01 16:36 | disposition home or self-care (01) ==
LOC: ED 16:03
DX: S01.351A Open bite of right ear, initial encounter (principal); W54.0XXA Bitten by dog, initial encounter; Y92.832 Beach as the place of occurrence of the external cause; Z79.899 Other long term (current) drug therapy; Z23 Encounter for immunization
CPT/HCPCS: 12011; 90471; 90715; 99283; A9270

== ENCOUNTER 2023-10-19 11:05 | Outpatient (CLI) | payer MEDICAID ==
--- NOTE | 2023-10-19 15:42 | XRAY Report ---
PROCEDURE: Clavicle RT INDICATIONS: RIGHT CLAVICL FRACTURE TECHNIQUE: 2 views of the clavicle were acquired. COMPARISON: None. FINDINGS: Bones: Similar appearance of the fracture in the mid clavicle, with a little less than 1 shaft width of displacement. There has been interval callus formation. Soft tissues: No suspicious calcifications. IMPRESSION: Healing mid clavicle fracture. Reviewed by: John Augustin MD on 10/19/2023 3:40 PM PDT Approved by: John Augustin MD on 10/19/2023 3:40 PM PDT Station ID: [id number]
== END 2023-10-19 11:06 | disposition home or self-care (01) ==
LOC: DI 11:05
PROVIDERS: ATTEND Orthopaedic Surgery
DX: S42.021D Displaced fracture of shaft of right clavicle, subsequent encounter for fracture with routine healing (principal)

== ENCOUNTER 2023-11-30 11:56 | Outpatient (CLI) | payer MEDICAID ==
--- NOTE | 2023-11-30 14:09 | XRAY Report ---
PROCEDURE: Clavicle RT INDICATIONS: FRACTURE OF SHAFT OF RIGHT CLAVICLE TECHNIQUE: 2 views of the clavicle were acquired. COMPARISON: 10/19/2023, 09/08/2023, 07/28/2023. FINDINGS: Bones: There is interval slight healing at patient's known displaced mid clavicular shaft fracture s ite with callus formation. No new fracture or dislocation. Shoulder alignment is unchanged from prior study. No suspicious bony lesions. Soft tissues: No suspicious soft tissue calcifications or masses. IMPRESSION: Interval healing at mid clavicular shaft fracture site with stable right shoulder alignment. No new f racture or dislocation. Reviewed by: Leandro Nino MD on 11/30/2023 2:07 PM PDT Approved by: Leandro Nino MD on 11/30/2023 2:07 PM PDT Station ID: [id number]
== END 2023-11-30 11:57 | disposition home or self-care (01) ==
LOC: DI 11:56
PROVIDERS: ATTEND Orthopaedic Surgery
DX: S42.021D Displaced fracture of shaft of right clavicle, subsequent encounter for fracture with routine healing (principal)